=== PATIENT | female | born 1975 | race Caucasian/White ===

== ENCOUNTER 2020-05-11 18:45 | Emergency (ER) | payer MEDICARE, SELFPAY | END 2020-05-11 20:06 | disposition left against medical advice (07) | LOC: HO.ED 20:05 | PROVIDERS: Emergency Provider Internal Medicine; PCP Internal Medicine | DX: M54.5 Low back pain (principal) | CPT/HCPCS: 99281 ==

== ENCOUNTER 2020-07-07 15:22 | Outpatient (REF) | payer BC, MEDICARE, SELFPAY ==
--- NOTE | 2020-07-07 | MM_ITS ---
EXAMINATION: MM SCREENING DIGITAL BREAST TOMOSYNTHESIS, BILATERAL CLINICAL INFORMATION: Screening. Asymptomatic. The lifetime risk of breast cancer based on the Tyrer-Cuzick Model is 12%. COMPARISON: Mammography: 07/10/2019, 06/27/2019, 06/14/2018, 06/01/2017 TECHNIQUE: Digital breast tomosynthesis is performed in both the craniocaudal and mediolateral oblique views along with computer-aided detection (CAD). Synthesized 2D images are generated from the tomosynthesis. Additional exaggerated right CC view is provided. FINDINGS: There are scattered areas of fibroglandular density (ACR BI-RADS breast composition Category b). There are no significant masses, abnormal calcifications, or other abnormalities. Parenchymal pattern is similar to prior exams. No developing density. No significant changes. There is a dermal lesion again noted overlying the posterior upper left breast. MM/MM tomosynthesis screening BI IMPRESSION: No significant changes from prior exams. ASSESSMENT: BI-RADS 2: Benign RECOMMENDATION: Routine annual mammography screening. This patient's information was entered into a reminder system with a target due date for their next mammogram.
== END 2020-07-07 15:23 | disposition home or self-care (01) ==
LOC: HO.MAMMO 15:22
PROVIDERS: Visit Provider Physician Assistant
DX: Z12.31 Encounter for screening mammogram for malignant neoplasm of breast (principal)
CPT/HCPCS: 77063; 77067

== ENCOUNTER → 2020-07-08 13:36 | Outpatient (BNVA) | payer BC, MEDICARE, SELFPAY | PROVIDERS: PCP Internal Medicine; Referring Provider Internal Medicine; Visit Provider Urology | DX: Z76.89 Persons encountering health services in other specified circumstances (principal) ==

== ENCOUNTER 2020-07-09 10:56 | Outpatient (REF) | payer BC, MEDICARE, SELFPAY ==
[2020-07-15 22:52] LABS: Stone Source KIDNEY STONE
== END 2020-07-09 10:57 | disposition home or self-care (01) ==
LOC: HO.LNP 10:56
PROVIDERS: Visit Provider Urology
DX: N20.2 Calculus of kidney with calculus of ureter (principal)
CPT/HCPCS: 82365; 88300

== ENCOUNTER 2020-07-27 09:27 | Outpatient (REF) | payer BC, MEDICARE, SELFPAY ==
[2020-07-27 10:32] LABS: Anion Gap 10 (12-20); Blood Urea Nitrogen 8 mg/dL (9-16); Calcium 9.9 mg/dL (8.4-10.2); Carbon Dioxide 29 mmol/L (22-29); Chloride 105 mmol/L (96-108); Estimated Glomerular Filt Rate > 60; Glucose Random 90 mg/dL (60-115); Potassium 4.4 mmol/l (3.3-5.1); Sodium 140 mmol/L (135-145)
[2020-07-28 13:43] LABS: Calcium (PTHI) 10.1 mg/dL (8.6-10.2); PTHI 68 pg/mL (14-64)
== END 2020-07-27 09:28 | disposition home or self-care (01) ==
LOC: HO.LAB 09:27
PROVIDERS: PCP Internal Medicine; Visit Provider Urology
DX: N20.0 Calculus of kidney (principal)
CPT/HCPCS: 80048; 83970

== ENCOUNTER 2020-08-06 16:10 | Outpatient (REF) | payer BC, MEDICARE, SELFPAY ==
--- NOTE | 2020-08-06 16:14 | US_ITS ---
EXAMINATION: US RETROPERITONEAL LIMITED (RENAL ONLY) CLINICAL INFORMATION: Calculus of kidney. COMPARISON: Renal ultrasound 10/25/2018. TECHNIQUE: Real-time imaging of the kidneys. FINDINGS: RIGHT KIDNEY: 11.3 x 5.3 x 6.4 cm (SAG x AP x TRV). Medullary nephrocalcinosis. 1.9 cm anechoic right upper pole simple cyst. There is a 6 mm echogenic, shadowing lower pole calculus and a 4 mm echogenic, shadowing upper pole calculus. Renal cortical thickness is normal. No hydronephrosis. LEFT KIDNEY: 11.8 x 5.6 x 5.4 cm (SAG x AP x TRV). 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 1.8 cm simple cyst of the upper pole. 2.2 cm simple cyst of the lower pole. There is a prominent extrarenal pelvis but no calyceal dilation to suggest hydronephrosis. 5 mm echogenic mid renal calculus and a 3 mm echogenic, shadowing lower pole calculus. US/US renal BI IMPRESSION: Bilateral medullary nephrocalcinosis with additional focal echogenic shadowing nonobstructing renal calculi as described above. Bilateral renal cysts.
== END 2020-08-06 16:11 | disposition home or self-care (01) ==
LOC: HO.US 16:10
PROVIDERS: Visit Provider Urology
DX: N20.0 Calculus of kidney (principal)
CPT/HCPCS: 76775

== ENCOUNTER → 2020-08-19 14:53 | Outpatient (BNVA) | payer BC, MEDICARE, SELFPAY | PROVIDERS: PCP Internal Medicine; Visit Provider Urology | DX: N20.0 Calculus of kidney (principal); E83.52 Hypercalcemia; E21.3 Hyperparathyroidism, unspecified | CPT/HCPCS: 99212 ==

== ENCOUNTER 2020-09-23 08:40 | Outpatient (REF) | payer BC, MEDICARE, SELFPAY ==
[2020-09-23 09:20] LABS: MANUAL DIFF FLAG NO
[2020-09-23 09:26] LABS: Basophils Absolute Auto 0.1 X10*3/uL (0.0-0.2); Basophils Percent Auto 0.8 % (0-2); Eosinophils Absolute Auto 0.2 X10*3/uL (0.0-0.4); Eosinophils Percent Auto 2.4 % (0-4); Hematocrit 38.9 % (37-47); Hemoglobin 12.3 g/dl (12.0-16.0); Imm Gran Abs Auto 0.02 X10*3/uL (0.00-0.03); Imm Gran Pct Auto 0.3 % (0.0-0.4); Lymphocytes Absolute Auto 1.9 X10*3/uL (1.2-4.9); Lymphocytes Percent Auto 26.1 % (20-40); Mean Corpuscular HGB Conc 31.6 g/dl (31.0-35.0); Mean Corpuscular Hemoglobin 27.7 pg (27.0-33.0); Mean Corpuscular Volume 87.6 fL (80-98); Mean Platelet Volume 10.5 fL (9.4-12.3); Monocytes Absolute Auto 0.5 X10*3/uL (0.1-1.2); Monocytes Percent Auto 7.1 % (2-11); Neutrophils Absolute Auto 4.6 X10*3/uL (2.0-8.3); Neutrophils Percent Auto 63.3 % (45-73); Platelet Count 387 X10*3/uL (160-400); Red Blood Count 4.44 X10*6/uL (4.20-5.50); Red Cell Distribution Width 14.6 % (11.0-16.0); White Blood Count 7.2 X10*3/uL (4.8-10.8)
[2020-09-23 10:01] LABS: Alanine Aminotransferase 15 U/L (0-31); Albumin Level 4.5 g/dL (3.5-5.0); Alkaline Phosphatase 48 U/L (39-117); Anion Gap 11 (12-20); Aspartate Amino Transferase 16 U/L (5-31); Bilirubin Total 0.4 mg/dL (0.0-1.0); Blood Urea Nitrogen 8 mg/dL (9-16); Calcium 10.3 mg/dL (8.4-10.2); Carbon Dioxide 27 mmol/L (22-29); Chloride 105 mmol/L (96-108); Cholesterol 253 mg/dL; Estimated Glomerular Filt Rate > 60; Glucose Fasting 86 mg/dL (60-99); HDL Cholesterol 51 mg/dL; LDL Cholesterol Calculated 174 mg/dl; Potassium 4.2 mmol/L (3.3-5.1); Sodium 139 mmol/L (135-145); Total Protein 7.2 g/dL (6.5-8.0); Triglycerides 143 mg/dL
[2020-09-23 10:15] LABS: TSH reflex Free T4 1.62 uIU/mL (0.32-4.0)
[2020-09-23 11:00] LABS: Folate 12.6 ng/mL (> or = 4.0); Vitamin B12 399 pg/mL (200-900)
[2020-09-26 11:51] LABS: Lamotrigine Lamictal 12.8 mcg/mL (4.0-18.0)
[2020-09-27 23:47] LABS: Vitamin D 25-OH, D2 <4 ng/mL; Vitamin D 25-OH, D3 14 ng/mL; Vitamin D 25-OH, Total 14 ng/mL (30-100)
== END 2020-09-23 08:41 | disposition home or self-care (01) ==
LOC: HO.LAB 08:40
PROVIDERS: Absent Provider Urology; PCP Internal Medicine; Visit Provider Internal Medicine
DX: D64.9 Anemia, unspecified (principal); G47.00 Insomnia, unspecified; E78.5 Hyperlipidemia, unspecified; R56.9 Unspecified convulsions; R53.83 Other fatigue; E55.9 Vitamin D deficiency, unspecified
CPT/HCPCS: 36415; 80053; 80061; 80175; 82306; 82607; 82746; 84443; 85025

== ENCOUNTER 2020-11-26 13:10 | Outpatient (REF) | payer BC, MEDICARE, SELFPAY ==
[2020-11-26 14:38] LABS: Hematocrit 38.8 % (37-47); Hemoglobin 12.4 g/dl (12.0-16.0); Mean Corpuscular Hemoglobin 28.4 pg (27.0-33.0); Mean Corpuscular Volume 88.8 fL (80-98); Mean Platelet Volume 10.4 fL (9.4-12.3); Platelet Count 392 X10*3/uL (160-400); Red Blood Count 4.37 X10*6/uL (4.20-5.50); Red Cell Distribution Width 14.5 % (11.0-16.0); White Blood Count 8.2 X10*3/uL (4.8-10.8)
[2020-11-26 15:20] LABS: HCG Quantitative < 2 mIU/mL; Thyroid Stimulating Hormone 1.26 uIU/mL (0.32-4.0)
[2020-11-27 06:26] LABS: CT PCR NOT DETECTED (Not Detect.); NG PCR NOT DETECTED (Not Detect.)
[2020-11-30 19:22] LABS: HPV mRNA E6/E7 rflx Not Detected (Not Detected)
== END 2020-11-26 13:11 | disposition home or self-care (01) ==
LOC: HO.LAB 13:10
PROVIDERS: PCP Internal Medicine; Visit Provider Obstetrics & Gynecology
DX: Z01.419 Encounter for gynecological examination (general) (routine) without abnormal findings (principal); N88.9 Noninflammatory disorder of cervix uteri, unspecified; N92.1 Excessive and frequent menstruation with irregular cycle; Z87.891 Personal history of nicotine dependence
CPT/HCPCS: 36415; 57500; 84443; 84702; 85027; 87491; 87591; 87624; 88142; 88305

== ENCOUNTER 2020-12-09 12:43 | Outpatient (REF) | payer BC, MEDICARE, SELFPAY ==
--- NOTE | ~2020-12-09 | US_ITS ---
EXAMINATION: PELVIC ULTRASOUND CLINICAL INFORMATION: Excessive and frequent menstruation COMPARISON: None TECHNIQUE: Transabdominal and transvaginal pelvic ultrasound was performed. Transvaginal exam was performed for better visualization of the uterus and ovaries. FINDINGS: The uterus is retroverted and measures 9.3 x 5.5 x 6.5 cm in dimension. No focal uterine lesion is seen. The endometrium is thickened measuring 2.2 cm. There is a small thin-walled endometrial cyst measuring 4 x 6 x 4 mm. There are nabothian cysts in the cervix. The right ovary is not seen. The left ovary is enlarged and measures 4.3 x 3.4 x 3.3 cm, volume 25 mL. There is a 3.6 x 2.7 x 3.3 cm minimally complex cyst with a cyst within cyst or a daughter cyst. There is a small amount of fluid in the pelvis. US/US pelvic complete IMPRESSION: Abnormally thickened endometrium measuring 2.2 cm. Right ovary not seen. Enlarged left ovary and 3.6 x 2.7 x 3.3 cm slightly complex left ovarian cyst.
--- NOTE | ~2020-12-09 | US_ITS ---
EXAMINATION: PELVIC ULTRASOUND CLINICAL INFORMATION: Excessive and frequent menstruation COMPARISON: None TECHNIQUE: Transabdominal and transvaginal pelvic ultrasound was performed. Transvaginal exam was performed for better visualization of the uterus and ovaries. FINDINGS: The uterus is retroverted and measures 9.3 x 5.5 x 6.5 cm in dimension. No focal uterine lesion is seen. The endometrium is thickened measuring 2.2 cm. There is a small thin-walled endometrial cyst measuring 4 x 6 x 4 mm. There are nabothian cysts in the cervix. The right ovary is not seen. The left ovary is enlarged and measures 4.3 x 3.4 x 3.3 cm, volume 25 mL. There is a 3.6 x 2.7 x 3.3 cm minimally complex cyst with a cyst within cyst or a daughter cyst. There is a small amount of fluid in the pelvis. US/US transvaginal IMPRESSION: Abnormally thickened endometrium measuring 2.2 cm. Right ovary not seen. Enlarged left ovary and 3.6 x 2.7 x 3.3 cm slightly complex left ovarian cyst.
== END 2020-12-09 12:44 | disposition home or self-care (01) ==
LOC: HO.US 12:43
PROVIDERS: PCP Internal Medicine; Visit Provider Obstetrics & Gynecology
DX: N92.1 Excessive and frequent menstruation with irregular cycle (principal)
CPT/HCPCS: 76830; 76856

== ENCOUNTER → 2020-12-14 13:39 | Outpatient (BNVA) | payer BC, MEDICARE, SELFPAY | PROVIDERS: PCP Internal Medicine; Referring Provider Urology; Visit Provider Internal Medicine Endocrinology, Diabetes & Metabolism ==

== ENCOUNTER 2020-12-15 10:03 | Outpatient (REF) | payer BC, MEDICARE, SELFPAY ==
[2020-12-15 12:28] LABS: Alanine Aminotransferase 14 U/L (0-31); Albumin Level 4.8 g/dL (3.5-5.0); Alkaline Phosphatase 57 U/L (39-117); Anion Gap 13 (12-20); Aspartate Amino Transferase 15 U/L (5-31); Bilirubin Total 0.5 mg/dL (0.0-1.0); Blood Urea Nitrogen 9 mg/dL (9-16); Calcium 10.5 mg/dL (8.4-10.2); Carbon Dioxide 27 mmol/L (22-29); Chloride 105 mmol/L (96-108); Estimated Glomerular Filt Rate > 60; Glucose Fasting 84 mg/dL (60-99); Magnesium 2.1 mg/dL (1.6-2.6); Phosphorus 2.7 mg/dL (2.7-4.5); Potassium 4.1 mmol/L (3.3-5.1); Sodium 141 mmol/L (135-145); Total Protein 7.8 g/dL (6.5-8.0)
[2020-12-15 12:34] LABS: Vitamin D 25-OH Total 14.7 ng/mL (>30)
[2020-12-16 12:44] LABS: Calcium (PTHI) 10.3 mg/dL (8.6-10.2); PTHI 100 pg/mL (14-64)
[2020-12-16 17:36] LABS: CA-125 27 U/mL (<35)
[2020-12-17 15:21] LABS: Calcium, Ionized 5.4 mg/dL (4.8-5.6)
[2020-12-18 15:11] LABS: HPV mRNA E6/E7 rflx Not Detected (Not Detected)
[2020-12-18 17:11] LABS: Alkaline Phosphatase Bone 7.9 mcg/L (5.0-18.8)
[2020-12-19 17:21] LABS: VITAMIN D (1,25 OH) D3 76 pg/mL; Vit D (1,25-Dihydroxy) Total 76 pg/mL (18-72); Vitamin D (1,25 OH) D2 <8 pg/mL
== END 2020-12-15 10:04 | disposition home or self-care (01) ==
LOC: HO.LAB 10:03
PROVIDERS: Absent Provider Internal Medicine Endocrinology, Diabetes & Metabolism; PCP Internal Medicine; Visit Provider Obstetrics & Gynecology
DX: N92.1 Excessive and frequent menstruation with irregular cycle (principal); N88.9 Noninflammatory disorder of cervix uteri, unspecified; N83.299 Other ovarian cyst, unspecified side; R87.615 Unsatisfactory cytologic smear of cervix; E21.3 Hyperparathyroidism, unspecified; Z87.891 Personal history of nicotine dependence
CPT/HCPCS: 36415; 58100; 80053; 81025; 82306; 82330; 82652; 83735; 83970; 84075; 84100; 86304; 87624; 88142; 88305

== ENCOUNTER 2020-12-17 10:33 | Outpatient (REF) | payer BC, MEDICARE, SELFPAY ==
[2020-12-17 11:47] LABS: Creatinine, mg/dL 63.96
[2020-12-17 17:53] LABS: Creatinine, 24Hr Urine 0.7 G/Day (1.0-2.0); Total Volume 24 Hour Urine 1075 mL
[2020-12-18 19:17] LABS: Calcium, 24 Hr Urine 194 mg/24 h; Calcium/Creatinine Ratio 286 mg/g creat (30-275); Creatinine 24Hr Urine 0.68 g/24 h (0.50-2.15)
== END 2020-12-17 10:34 | disposition home or self-care (01) ==
LOC: HO.LNP 10:33
PROVIDERS: Visit Provider Internal Medicine Endocrinology, Diabetes & Metabolism
DX: E21.3 Hyperparathyroidism, unspecified (principal)
CPT/HCPCS: 82340; 82570

== ENCOUNTER 2020-12-24 13:13 | Outpatient (REF) | payer BC, MEDICARE, SELFPAY ==
--- NOTE | ~2020-12-24 | US_ITS ---
EXAMINATION: US THYROID CLINICAL INFORMATION: Hyperparathyroidism, unspecified. COMPARISON: Ultrasound soft tissue head/neck thyroid dated 08/18/2016 and 09/24/2015. TECHNIQUE: Linear transducer grayscale and color Doppler examination with attention to the region of the thyroid. FINDINGS: SIZE: Measurements of the thyroid lobes and nodules are given in sagittal, anteroposterior and transverse dimensions respectively. Right Thyroid Lobe: 5.0 x 1.2 x 1.3 cm, volume 4.1 mL. Previously 5.0 x 1.5 x 1.2 cm, volume 4.5 mL. Parenchyma: The gland echotexture is homogeneous. Thyroid vascularity is normal. Left Thyroid Lobe: 5.0 x 1.1 x 1.4 cm, volume 4.1 mL. Previously 5.1 x 0.9 x 1.2 cm, volume 3.0 mL. Parenchyma: The gland echotexture is homogeneous. Thyroid vascularity is normal. Isthmus: 0.18 cm in maximum AP dimension. Previously 0.16 cm. Estimated total number of nodules greater than or equal to 1 cm: 0. Irrigator Head nodules are described as follows: No focal thyroid nodule is seen. No parathyroid adenoma is identified. NODES: No lymphadenopathy is seen in the tissue surrounding the thyroid gland. US/US thyroid IMPRESSION: Normal thyroid ultrasound. No parathyroid adenoma visualized.
== END 2020-12-24 13:14 | disposition home or self-care (01) ==
LOC: HO.US 13:13
PROVIDERS: Visit Provider Internal Medicine Endocrinology, Diabetes & Metabolism
DX: E21.3 Hyperparathyroidism, unspecified (principal)
CPT/HCPCS: 76536

== ENCOUNTER → 2020-12-29 11:20 | Outpatient (BNVA) | payer MEDICARE, BC, SELFPAY | PROVIDERS: PCP Internal Medicine; Visit Provider Obstetrics & Gynecology | DX: N92.1 Excessive and frequent menstruation with irregular cycle (principal) | CPT/HCPCS: Q3014 ==

== ENCOUNTER 2021-01-13 12:44 | Outpatient (REF) | payer BC, MEDICARE, SELFPAY ==
--- NOTE | ~2021-01-13 | MM_ITS ---
EXAMINATION: BONE DENSITOMETRY CLINICAL INDICATION: Hyperparathyroidism. Age 45. COMPARISON: None (current study represents initial baseline exam). TECHNIQUE: Using a P2i DXA System (software version: 13.1) manufactured by [employer], dual-energy x-ray absorptiometry was performed of the lumbar spine, left hip, and left forearm radius 33%. The images are of good technical quality. Based on ISCD (International Society for Clinical Densitometry) standards of reporting, Z-scores instead of T-scores are reported in this premenopausal woman. Summary results are attached. FINDINGS: AP SPINE L1-L4: BMD 1.063 g/cm2, T-score -1.0, Z-score -1.0, Z-score within expected range for age. LEFT FEMUR, NECK: BMD 0.800 g/cm2, T-score -1.7, Z-score -1.2, Z-score within expected range for age. LEFT FEMUR, TOTAL: BMD 0.861 g/cm2, T-score -1.2, Z-score -0.9, Z-score within expected range for age. LEFT FOREARM RADIUS 33%: BMD 0.726 g/cm2, T-score -1.7, Z-score -1.7, Z-score within expected range for age. IDENTIFIED RISK FACTORS: Hyperparathyroid, anticonvulsant. HISTORY OF FRACTURE: None listed. MEDICATIONS: None listed. MM/XR DEXA appendicular skeleton IMPRESSION: 1. DIAGNOSIS: Based on the lowest Z-score value of -1.7 in the forearm radius 33%, the patient's bone density is within the expected range for age. 2. 10-YEAR FRACTURE RISK PREDICTION, FRAX: Major osteoporotic fracture (clinical spine, forearm, hip or shoulder) 3.2%. Hip fracture 0.4%. 3. Treatment Recommendations: NOF guidelines recommend consideration for treatment in postmenopausal women and men age 50 and older presenting with the following: -A hip or vertebral (clinical or morphometric) fracture. -T-score less than or equal to -2.5 at the femoral neck or spine after appropriate evaluation to exclude secondary causes. -Low bone mass at the hip or spine and a 10-year fracture probability by FRAX of greater than or equal to 3% for hip fracture or greater than or equal to 20% for major osteoporotic fracture based on the [place] adapted WHO algorithm. 4. Other Recommendations: All treatment decisions require clinical judgment and consideration of individual patient factors, including patient preferences, comorbidities, previous drug use, risk factors not captured in the FRAX model (e.g. frailty, falls, vitamin D deficiency, increased bone turnover, interval significant decline in bone density) and possible under or overestimation of fracture risk by FRAX. FUTURE SCAN RECOMMENDATION: People with diagnosed cases of osteoporosis or at high risk for fracture should have regular bone mineral density tests. For patients eligible for Medicare, routine testing is allowed once every 2 years. The testing frequency can be increased to one year for patients who have rapidly progressing disease, those who are receiving or discontinuing medical therapy to restore bone mass, or have additional risk factors.
== END 2021-01-13 12:45 | disposition home or self-care (01) ==
LOC: HO.MAMMO 12:44
PROVIDERS: Visit Provider Internal Medicine Endocrinology, Diabetes & Metabolism
DX: Z13.820 Encounter for screening for osteoporosis (principal); E21.3 Hyperparathyroidism, unspecified; Z79.01 Long term (current) use of anticoagulants
CPT/HCPCS: 77081

== ENCOUNTER → 2021-02-18 12:35 | Outpatient (BNVA) | payer BC, MEDICARE, SELFPAY | PROVIDERS: PCP Internal Medicine; Visit Provider Internal Medicine Endocrinology, Diabetes & Metabolism | DX: E21.3 Hyperparathyroidism, unspecified (principal) | CPT/HCPCS: 99212 ==

== ENCOUNTER 2021-03-08 15:21 | Outpatient (REF) | payer BC, MEDICARE, SELFPAY ==
--- NOTE | ~2021-03-08 | US_ITS ---
EXAMINATION: US PELVIS COMPLETE US BLADDER CLINICAL INFORMATION: Complex left ovarian cyst, poor urinary stream. COMPARISON: None TECHNIQUE: Transabdominal and transvaginal imaging of the pelvis was performed. FINDINGS: PELVIS: The uterus is retroverted and retroflexed. It measures 9.2 cm in length, 6.4 cm in AP and 6.8 cm in transverse dimension. Endometrial thickness is 1.8 cm. No focal lesion seen. The right ovary measures 3.9 x 2.2 x 2.8 cm and volume 12.6 mL. Previously it measured 1.7 x 1.4 x 1 cm. The left ovary measures 1.7 x 2.2 x 1.6 cm and volume 3.1 mL. Previously it measured 4.3 x 3.4 x 3.3 cm and volume 25.3 mL. BLADDER: The bladder is distended with a prevoid volume of 410 mL and a postvoid volume of 6.0 mL. There are normal bilateral ureteral jets. No bladder wall thickening seen. US/US transvaginal IMPRESSION: Unremarkable AP pelvis exam. Unremarkable bladder exam with a tiny postvoid residual volume.
--- NOTE | ~2021-03-08 | US_ITS ---
EXAMINATION: US PELVIS COMPLETE US BLADDER CLINICAL INFORMATION: Complex left ovarian cyst, poor urinary stream. COMPARISON: None TECHNIQUE: Transabdominal and transvaginal imaging of the pelvis was performed. FINDINGS: PELVIS: The uterus is retroverted and retroflexed. It measures 9.2 cm in length, 6.4 cm in AP and 6.8 cm in transverse dimension. Endometrial thickness is 1.8 cm. No focal lesion seen. The right ovary measures 3.9 x 2.2 x 2.8 cm and volume 12.6 mL. Previously it measured 1.7 x 1.4 x 1 cm. The left ovary measures 1.7 x 2.2 x 1.6 cm and volume 3.1 mL. Previously it measured 4.3 x 3.4 x 3.3 cm and volume 25.3 mL. BLADDER: The bladder is distended with a prevoid volume of 410 mL and a postvoid volume of 6.0 mL. There are normal bilateral ureteral jets. No bladder wall thickening seen. US/US pelvic complete IMPRESSION: Unremarkable AP pelvis exam. Unremarkable bladder exam with a tiny postvoid residual volume.
== END 2021-03-08 15:22 | disposition home or self-care (01) ==
LOC: HO.US 15:21
PROVIDERS: Visit Provider Obstetrics & Gynecology
DX: N83.299 Other ovarian cyst, unspecified side (principal); E21.3 Hyperparathyroidism, unspecified
CPT/HCPCS: 76830; 76856

== ENCOUNTER → 2021-03-31 11:00 | Outpatient (BNVA) | payer MEDICARE, BC, SELFPAY | PROVIDERS: PCP Internal Medicine; Visit Provider Obstetrics & Gynecology | CPT/HCPCS: Q3014 ==

== ENCOUNTER → 2021-05-19 11:20 | Outpatient (BNVA) | payer BC, MEDICARE, SELFPAY | PROVIDERS: Visit Provider Urology | DX: N20.0 Calculus of kidney (principal) | CPT/HCPCS: 99212 ==

== ENCOUNTER 2021-05-21 10:35 | Outpatient (REF) | payer BC, MEDICARE, SELFPAY ==
--- NOTE | ~2021-05-21 | XR_ITS ---
EXAMINATION: XR CLINICAL INFORMATION: Shoulder pain. COMPARISON: None. TECHNIQUE: Chest 2 views. Right scapula 2 views. FINDINGS: Chest: Both lungs are fairly well-expanded and clear. The heart size and pulmonary vascularity is normal. There is mild scoliosis of mid dorsal spine. No lytic process. Right scapula: There is no visible fracture or bony abnormality involving the right scapula. Mild degenerative spurring is seen involving the right AC joint. The glenohumeral joint space is normal. The soft tissues are normal. XR/XR scapula RT IMPRESSION: No acute cardiopulmonary process. Mild dextroscoliosis mid to lower dorsal spine. No acute fracture or bony abnormality involving the scapula. Mild degenerative arthritic spurring right AC joint.
--- NOTE | ~2021-05-21 | XR_ITS ---
EXAMINATION: XR CLINICAL INFORMATION: Shoulder pain. COMPARISON: None. TECHNIQUE: Chest 2 views. Right scapula 2 views. FINDINGS: Chest: Both lungs are fairly well-expanded and clear. The heart size and pulmonary vascularity is normal. There is mild scoliosis of mid dorsal spine. No lytic process. Right scapula: There is no visible fracture or bony abnormality involving the right scapula. Mild degenerative spurring is seen involving the right AC joint. The glenohumeral joint space is normal. The soft tissues are normal. XR/XR chest 2V IMPRESSION: No acute cardiopulmonary process. Mild dextroscoliosis mid to lower dorsal spine. No acute fracture or bony abnormality involving the scapula. Mild degenerative arthritic spurring right AC joint.
== END 2021-05-21 10:36 | disposition home or self-care (01) ==
LOC: HO.XRAY 10:35
PROVIDERS: PCP Internal Medicine; Visit Provider Internal Medicine
DX: M89.8X1 Other specified disorders of bone, shoulder (principal); R06.02 Shortness of breath
CPT/HCPCS: 71046; 73010

== ENCOUNTER 2021-07-14 12:48 | Outpatient (REF) | payer BC, MEDICARE, SELFPAY ==
[2021-07-14 16:24] LABS: CT PCR NOT DETECTED (Not Detect.); NG PCR NOT DETECTED (Not Detect.)
[2021-07-15 11:51] LABS: BV Int Neg Control Negative (Negative); BV Int Pos Control Positive (Positive)
== END 2021-07-14 12:49 | disposition home or self-care (01) ==
LOC: HO.LAB 12:48
PROVIDERS: PCP Internal Medicine; Visit Provider Obstetrics & Gynecology
DX: N76.0 Acute vaginitis (principal); R10.2 Pelvic and perineal pain; R31.29 Other microscopic hematuria; B96.89 Other specified bacterial agents as the cause of diseases classified elsewhere; E78.5 Hyperlipidemia, unspecified; Z11.3 Encounter for screening for infections with a predominantly sexual mode of transmission; Z11.8 Encounter for screening for other infectious and parasitic diseases; Z87.891 Personal history of nicotine dependence
CPT/HCPCS: 87086; 87480; 87491; 87510; 87591; 87660

== ENCOUNTER 2021-07-23 09:02 | Outpatient (REF) | payer BC, MEDICARE, SELFPAY ==
[2021-07-23 10:03] LABS: Hematocrit 33.1 % (37.0-47.0); Hemoglobin 10.1 g/dl (12.0-16.0); Mean Corpuscular HGB Conc 30.5 g/dl (31.0-35.0); Mean Corpuscular Hemoglobin 24.5 pg (27.0-33.0); Mean Corpuscular Volume 80.1 fL (80.0-98.0); Mean Platelet Volume 10.2 fL (9.4-12.3); Platelet Count 409 X10*3/uL (160-400); Red Blood Count 4.13 X10*6/uL (4.20-5.50); Red Cell Distribution Width 17.2 % (11.0-16.0)
[2021-07-23 10:28] LABS: Alanine Aminotransferase 13 U/L (0-31); Albumin Level 4.2 g/dL (3.5-5.0); Alkaline Phosphatase 54 U/L (39-117); Anion Gap 11 (12-20); Aspartate Amino Transferase 17 U/L (5-31); Bilirubin Total 0.3 mg/dL (0.0-1.0); Blood Urea Nitrogen 8 mg/dL (9-16); Calcium 10.2 mg/dL (8.4-10.2); Carbon Dioxide 25 mmol/L (22-29); Chloride 107 mmol/L (96-108); Estimated Glomerular Filt Rate > 60; Glucose Random 66 mg/dL (60-115); Potassium 4.1 mmol/L (3.3-5.1); Sodium 139 mmol/L (135-145); Total Protein 7.1 g/dL (6.5-8.0)
[2021-07-23 10:45] LABS: HBsAGNum1 0.21 S/CO (0.00-0.99); HIV AB/AG Nonreactive (Nonreactive); HIV Num 1 0.07 S/CO (0.00-0.99); Hepatitis B Surface Antigen Negative (Negative); Syphilis Screen Nonreactive (Nonreactive); ~HepC Num1 0.09 S/CO (0.00-0.79); ~Hepatitis C Antibody Nonreactive (Nonreactive)
== END 2021-07-23 09:03 | disposition home or self-care (01) ==
LOC: HO.LAB 09:02
PROVIDERS: Absent Provider Nurse Practitioner Family; PCP Internal Medicine; Visit Provider Obstetrics & Gynecology
DX: R06.02 Shortness of breath (principal); N76.0 Acute vaginitis; B96.89 Other specified bacterial agents as the cause of diseases classified elsewhere
CPT/HCPCS: 36415; 80053; 85027; 86780; 86803; 87340; 87389

== ENCOUNTER 2021-08-04 15:24 | Outpatient (REF) | payer BC, MEDICARE, SELFPAY ==
--- NOTE | ~2021-08-04 | US_ITS ---
EXAMINATION: US PELVIS CLINICAL INFORMATION: Pelvic and perineal pain COMPARISON: Previous pelvic ultrasound March 2021 TECHNIQUE: Ultrasound of the pelvis is performed using both transabdominal and transvaginal transducers along with Doppler. Transvaginal imaging is performed due to inadequate visualization transabdominally. FINDINGS: The uterus is retroverted and retroflexed and measures 9.3 x 5.2 x 5.7 cm. No focal uterine lesion is seen. Endometrial thickness is normal measuring 1.2 cm. Right ovary measures 2 x 1.7 x 1.8 cm. Previously identified complex right ovarian March 2021 exam is no longer seen. The left ovary measures 3.3 x 2.7 x 2.4 cm. There is new 2.1 x 2 x 2.1 cm slightly complex cyst with thickened wall, thickened septation and some internal echoes. There is a small amount of fluid in the pelvis. US/US pelvic and transvaginal IMPRESSION: Resolved complex right ovarian cyst. New 2 cm complex left ovarian cyst. Small amount of fluid in the pelvis.
== END 2021-08-04 15:25 | disposition home or self-care (01) ==
LOC: HO.US 15:24
PROVIDERS: PCP Internal Medicine; Visit Provider Obstetrics & Gynecology
DX: R10.2 Pelvic and perineal pain (principal)
CPT/HCPCS: 76830; 76856

== ENCOUNTER → 2021-08-05 13:51 | Outpatient (REF) | payer BC, MEDICARE, SELFPAY ==
--- NOTE | 2021-08-05 13:55 | ECG_ITS ---
Test Reason : sob Blood Pressure : / mmHG Vent. Rate : 067 BPM Atrial Rate : 067 BPM P-R Int : 140 ms QRS Dur : 080 ms QT Int : 378 ms P-R-T Axes : 032 042 055 degrees QTc Int : 399 ms Normal sinus rhythm Normal ECG When compared with ECG of 20-JUN-2016 10:54, No significant change was found Referred By: Junie Saldaña Electronically Signed By:Garrett Magana
== END ==
LOC: HO.CARD 13:51
PROVIDERS: PCP Internal Medicine; Visit Provider Nurse Practitioner Family
DX: R06.02 Shortness of breath (principal); R10.2 Pelvic and perineal pain; R31.29 Other microscopic hematuria
CPT/HCPCS: 81003; 93005

== ENCOUNTER 2021-08-12 09:46 | Outpatient (REF) | payer BC, MEDICARE, SELFPAY ==
[2021-08-12 10:42] LABS: COVID-19 Test Negative (Negative)
== END 2021-08-12 09:47 | disposition home or self-care (01) ==
LOC: HO.LAB 09:46
PROVIDERS: Visit Provider Internal Medicine
DX: Z20.822 Contact with and (suspected) exposure to COVID-19 (principal)
CPT/HCPCS: 87635; C9803

== ENCOUNTER → 2021-08-18 12:14 | Outpatient (BNVA) | payer BC, MEDICARE, SELFPAY | PROVIDERS: PCP Internal Medicine; Visit Provider Obstetrics & Gynecology ==

== ENCOUNTER → 2021-09-02 12:53 | Outpatient (REF) | payer MEDICARE, SELFPAY ==
--- NOTE | 2021-09-02 12:57 | CA_ITS ---
Transthoracic Echocardiogram Patient (Last, First, Middle): Delmy Escalera A Gender: Female Date of : 1975 Age: 46 Procedure Date: 09/02/2021 Procedure Type: Transthoracic Echocardiogram Location: OP Height: 157.48 cm Weight: 63.5 kg BSA: 1.64 m2 Heart Rate: bpm BP: 122 / 76 mmHg Cotton Stripper: ANGUS Referring MD: Junie DANIEL Wood Barrel Reconditioner: Michael Rodriguez MD Symptoms: R06.02 - Shortness of breath Study Quality: Good ECG Rhythm: Sinus Conclusions: - Essentially normal study Findings Left Ventricle Normal left ventricular size, thickness, and systolic function. The visually estimated ejection fraction is between 65-70%. Spectral Doppler is indicative of a normal filling pattern. Right Ventricle Normal right ventricular cavity size and systolic function. Atria Both atria are normal in size. There is a mobile atrial septum noted. There is no evidence of interatrial shunt. Aortic Valve The aortic valve structure and function is likely normal. There is no aortic valve stenosis. There is no aortic valve regurgitation. Mitral Valve Normal mitral valve structure and function. There is trace mitral valve regurgitation. There is no mitral valve stenosis. Pulmonic Valve The pulmonic valve was not well visualized. Tricuspid Valve Likely normal tricuspid valve structure and function. There is mild tricuspid valve regurgitation. The right ventricular systolic pressure is normal. The right ventricular systolic pressure is 23 mmHg. Normal right atrial pressure. There is no evidence of pulmonary hypertension. Great Vessels All visible segments of the aorta are normal in size. The pulmonary artery was not well visualized. Venous The inferior vena cava is normal in size and collapses greater than 50% with inspiration. Pericardium/Pleural There is no evidence of pericardial effusion. Measurements 2D Linear Measurements IVSd: 0.82 0.6-0.9/0.6-1.0 cm LVIDd: 4.33 3.9-5.3/4.2-5.9 cm LVIDd Index: 2.64 2.4-3.2/2.2-3.1 cm/m2 LVIDs: 2.93 2.0-3.6 cm LVPWd: 0.84 0.7-1.1 cm Ao Root: 2.80 2.1-3.5 cm LA Diam: 3.50 2.7-3.8/3.0-4.0 cm LAIDs Index: 2.13 1.5-2.3 cm/m2 LV Mass: 138.64 67-162/88-224 g LV Mass Index: 84.54 43-95/49-115 g/m2 LVOT Diam: 2.00 3.0+(-)1.3 cm 2D Systolic Function EF 4C: 74.80 >55% EF 2C: 70.60 >55% EF BiP: 72.10 >55% Mitral Valve MV Pk E: 0.77 MV PK A: 0.65 MV Decel Time: 277.00 E/A: 1.20 E'Lateral: 12.90 E'Medial: 10.00 E/E' Med: 7.70 E/E' Lat: 6.00 PHT: 81.00 MVA PHT: 2.72 Decel [place]: 2.79 Aortic Valve AoV Pk Beka: 1.40 AoV Mn Beka: 1.07 AoV VTI: 0.34 AoV Pk Grad: 8.00 Aov Mn Grad: 5.00 SEAN Cont.VTI: 2.15 LVOT LVOT Pk Beka: 0.88 LVOT Mn Beka: 0.68 LVOT VTI: 0.23 LVOT Pk Grad: 3.00 LVOT Mn Grad: 2.00 LVOT Diam: 2.00 LVOT Area: 3.14 Diastolic Function MV Pk E: 0.77 MV Pk A: 0.65 E/A: 1.20 E'Medial: 10.00 E/E' Med: 7.70 E' Laterial: 12.90 E/E' Lat: 6.00 Right Ventricle TAPSE (mm): 25.30 TVS' Beka: 15.10 Tricuspid Valve TR Pk Beka: 2.24 TR Pk Grad: 20.00 RA Press: 3.00 RVSP: 23.00 Great Vessels Aorta Ao Root-2D: 2.80 2.0-3.7 cm Ao Asc: 2.60 2.1-3.4 cm Ao Arch: 2.50 Updated in Other Vendor System with Status of Final Michael Rodriguez MD electronically signed on 09/02/2021 5:51:56 PM with status of Final
== END ==
LOC: HO.CARD 12:53
PROVIDERS: Visit Provider Nurse Practitioner Family
DX: R06.02 Shortness of breath (principal)
CPT/HCPCS: 93306

== ENCOUNTER 2021-09-09 13:21 | Outpatient (REF) | payer MEDICARE, SELFPAY ==
--- NOTE | ~2021-09-09 | MM_ITS ---
EXAMINATION: MM SCREENING DIGITAL BREAST TOMOSYNTHESIS, BILATERAL CLINICAL INFORMATION: Screening. Asymptomatic. The lifetime risk of breast cancer based on the Tyrer-Cuzick Model is 11.9%. COMPARISON: Mammography: 2019 and studies dating back to June 01, 2017 TECHNIQUE: Digital breast tomosynthesis is performed in both the craniocaudal and mediolateral oblique views along with computer-aided detection (CAD). Synthesized 2D images are generated from the tomosynthesis. FINDINGS: There are scattered areas of fibroglandular density (ACR BI-RADS breast composition Category b). There are no significant masses, abnormal calcifications, or other abnormalities. MM/MM tomosynthesis screening BI IMPRESSION: There are no significant changes from prior study. ASSESSMENT: BI-RADS 1: Negative RECOMMENDATION: Routine annual mammography screening. This patient's information was entered into a reminder system with a target due date for their next mammogram.
== END 2021-09-09 13:22 | disposition home or self-care (01) ==
LOC: HO.MAMMO 13:21
PROVIDERS: PCP Internal Medicine; Visit Provider Internal Medicine
DX: Z12.31 Encounter for screening mammogram for malignant neoplasm of breast (principal)
CPT/HCPCS: 77063; 77067

== ENCOUNTER 2021-10-13 14:21 | Outpatient (REF) | payer MEDICARE, SELFPAY ==
[2021-10-13 17:57] LABS: CT PCR NOT DETECTED (Not Detect.); NG PCR NOT DETECTED (Not Detect.)
== END 2021-10-13 14:22 | disposition home or self-care (01) ==
LOC: HO.LAB 14:21
PROVIDERS: PCP Internal Medicine; Visit Provider Obstetrics & Gynecology
DX: N91.2 Amenorrhea, unspecified (principal)
CPT/HCPCS: 81025; 87491; 87591; 99212

== ENCOUNTER → 2021-10-27 15:10 | Outpatient (BNVA) | payer MEDICARE, SELFPAY | PROVIDERS: PCP Internal Medicine; Visit Provider Obstetrics & Gynecology | DX: N91.2 Amenorrhea, unspecified (principal) | CPT/HCPCS: Q3014 ==

== ENCOUNTER 2021-10-29 09:59 | Outpatient (REF) | payer MEDICARE, BC, SELFPAY ==
[2021-10-29 10:58] LABS: Hematocrit 35.2 % (37.0-47.0); Immature Retic Fraction 14.1 % (3.0-15.9); Mean Corpuscular HGB Conc 31.3 g/dl (31.0-35.0); Mean Corpuscular Hemoglobin 26.7 pg (27.0-33.0); Mean Corpuscular Volume 85.4 fL (80.0-98.0); Mean Platelet Volume 10.4 fL (9.4-12.3); Platelet Count 357 X10*3/uL (160-400); Red Blood Count 4.12 X10*6/uL (4.20-5.50); Red Cell Distribution Width 18.1 % (11.0-16.0); Retic HGB Equivalent 27.3 pg (30.0-35.0); Reticulocyte Percent 1.6 % (0.5-1.8); Reticulocytes Absolute 0.066 X10*6/uL (0.026-0.095); White Blood Count 6.9 X10*3/uL (4.8-10.8)
[2021-10-29 12:05] LABS: Iron 32 mcg/dL (30-160); Percent Iron Saturation 8 % (15-50); Total Iron Binding Capacity 418 mcg/dL (228-428); Unsaturated Iron Binding 386 ug/dL
[2021-10-29 12:15] LABS: HCG Quantitative < 2 mIU/mL; TSH reflex Free T4 0.86 uIU/mL (0.32-4.0)
[2021-10-31 01:51] LABS: Prolactin 3.2 ng/mL
== END 2021-10-29 10:00 | disposition home or self-care (01) ==
LOC: HO.LAB 09:59
PROVIDERS: Absent Provider Nurse Practitioner Family; PCP Internal Medicine; Visit Provider Obstetrics & Gynecology
DX: D50.9 Iron deficiency anemia, unspecified (principal); N91.2 Amenorrhea, unspecified
CPT/HCPCS: 36415; 83540; 84146; 84443; 84702; 85027; 85045

== ENCOUNTER 2021-11-16 10:44 | Outpatient (REF) | payer MEDICARE, BC, SELFPAY ==
--- NOTE | ~2021-11-16 | US_ITS ---
EXAMINATION: US PELVIS CLINICAL INFORMATION: N83.299 - Other ovarian cyst. Age 46. LMP 10/24/2021. COMPARISON: Ultrasound pelvis 08/04/2021, 03/08/2021, 12/09/2020 TECHNIQUE: Ultrasound of the pelvis is performed using both transabdominal and transvaginal transducers along with Doppler. Transvaginal imaging is performed due to inadequate visualization transabdominally. FINDINGS: Uterus: The uterus is retroverted and measures 9.2 x 6.1 x 6.5 cm. The double wall endometrial thickness is mildly thickened at 1.9 cm. The uterus is smooth in contour and has normal myometrial echogenicity. No visible fibroid. Adnexa: Both ovaries are visualized. There is normal color flow to the adnexa. There is no ovarian torsion. There is no pelvic ascites or fluid collection. Right ovary measures 2.0 x 0.9 x 1.5 cm. No right adnexal mass. Left ovary measures 2.6 x 1.7 x 1.9 cm. There is an intraovarian postovulatory corpus luteum cyst measuring 1.5 cm with typical peripheral mural thickening. No nodule or septation. The prior ultrasound 08/04/2021 was also performed at same time in the menstrual cycle and demonstrated a probable postovulatory corpus luteum measuring 2.1 cm. US/US pelvic and transvaginal IMPRESSION: -Uterus: Mild double wall endometrial thickening, 1.9 cm. -Adnexa: Left intraovarian postovulatory corpus luteum cyst measuring 1.5 cm. No ascites.
--- NOTE | ~2021-11-16 | US_ITS ---
EXAMINATION: US RETROPERITONEAL LIMITED (RENAL ONLY) CLINICAL INFORMATION: Calculus of kidney., Nephrocalcinosis COMPARISON: Ultrasound renal 08/06/2020 and 10/25/2018. TECHNIQUE: Real-time imaging of the kidneys. FINDINGS: RIGHT KIDNEY: 10.2 x 5.8 x 4.6 cm (SAG x AP x TRV). The kidney is normal in size, contour, and echogenicity. Renal cortical thickness is normal. No renal calculi or hydronephrosis. 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 There is 1.4 x 1.5 x 1.3 cm cyst in interpolar area and multiple calculi with the largest in the lower pole measured 1.3 x 1.0 cm. LEFT KIDNEY: 11.6 x 5.7 x 4.8 cm (SAG x AP x TRV). The kidney is normal in size, contour, and echogenicity. Renal cortical thickness is normal. No renal hydronephrosis. 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 Bilateral simple cysts..
== END 2021-11-16 10:45 | disposition home or self-care (01) ==
LOC: HO.US 10:44
PROVIDERS: PCP Internal Medicine; Visit Provider Urology
DX: R10.2 Pelvic and perineal pain (principal); N20.0 Calculus of kidney; N83.12 Corpus luteum cyst of left ovary; N28.1 Cyst of kidney, acquired
CPT/HCPCS: 76775; 76830; 76856

== ENCOUNTER 2021-11-16 12:36 | Emergency (ER) | payer BC, MEDICARE, SELFPAY ==
--- NOTE | ~2021-11-16 | CT_ITS ---
EXAMINATION: CT HEAD WITHOUT CONTRAST CLINICAL INFORMATION: Seizure. COMPARISON: Brain MRI from 01/09/2008. TECHNIQUE: Contiguous axial imaging was performed from the skull base to vertex without intravenous administration of contrast. This CT examination was performed using dose optimization techniques as appropriate, variously including the following: *Automated exposure control. *Adjustment of mA and/or kV according to patient size (this includes techniques or standardized protocols for targeted exams where dose is matched to indication/reason for exam; i.e. extremities or head). *Use of iterative reconstruction technique. DLP: 637 mGy-cm FINDINGS: Changes of prior right temporoparietal craniotomy. There is thinning of the anterior left parietal bone. There is no evidence of acute intracranial hemorrhage or edematous territorial infarction. A few foci of hypoattenuation in the periventricular and deep white matter. Chronic and simple malacia of the right temporal lobe. No demonstrated new loss of foster-white matter differentiation. Mild ex vacuo dilatation of the right lateral ventricle. Otherwise, the ventricles are normal in size and configuration. No evidence for obstructive hydrocephalus. No abnormal mass effect or midline shift. No extra-axial fluid collections. Mild calcific atherosclerotic disease of the intracranial internal carotid and vertebral arteries. No hyperdense vessel sign. No acute soft tissue or osseous abnormalities. Moderate leftward nasal septal deviation with spurring. Mild mucosal thickening of the paranasal sinuses. The mastoid air cells and middle ear cavities are clear. Mild to moderate degenerative arthropathy of the temporomandibular joints. CT/CT head/brain wo con IMPRESSION: 1. No evidence of acute intracranial hemorrhage or edematous territorial infarction. 2. 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 Mild nonspecific white matter changes.
[2021-11-16 12:44] VITALS: BP 123/78; BP 128/74; PULSE 114; PULSE 120; RESP 14; TEMP 36.8; O2SAT 100; BMI 26.5
--- NOTE | 2021-11-16 12:52 | ECG_ITS ---
Test Reason : SEIZURE Blood Pressure : / mmHG Vent. Rate : 102 BPM Atrial Rate : 102 BPM P-R Int : 124 ms QRS Dur : 084 ms QT Int : 328 ms P-R-T Axes : 043 023 028 degrees QTc Int : 427 ms Sinus tachycardia Otherwise normal ECG When compared with ECG of 05-AUG-2021 14:03, Vent. rate has increased BY 35 BPM Referred By: Krissy Meadows Electronically Signed By:Garrett Magana
[2021-11-16] MEDS: LORazepam 1 MG TABLET 2 MG PO (12:57)
--- NOTE | 2021-11-16 13:14 | ED.SEIZURE ---
HPI - Seizure General Chief Complaint: Seizure Stated Complaint: SEIZURE Time Seen by Provider: 11/16/21 12:51 Source: patient Mode of arrival: EMS Limitations: no limitations History of Present Illness complaint: seizure Onset (ago): minute(s) (prior to arrival ) Description of Episode: loss of consciousness and tonic-clonic movement Duration of episode: 15 -: second(s) Witnessed: Yes - by Bystander (kids) Trauma: No Seizure History: Yes Place: Home Possible Precipitating Event: lack of sleep and other (missed lamictal dose last night 200mg but took AM dose and 12pm dose of lamictal 100/100) Associated symptoms: denies other symptoms Treatments prior to arrival: none Related Data Home Medications Medication Instructions Recorded Confirmed lamotrigine 200 mg tablet 200 mg PO BID 07/08/20 07/15/21 Previous Rx's Medication Instructions Recorded albuterol sulfate 90 mcg/actuation 2 puff INHALATION Q4-6H PRN #8.5 g 07/15/21 aerosol inhaler (ProAir HFA) ferrous sulfate 325 mg (65 mg 325 mg PO DAILY 90 Days #90 tab 07/24/21 iron) tablet,delayed release medroxyprogesterone 10 mg tablet 10 mg PO daily 5 Days #5 tab 10/13/21 (Provera) Allergies Allergy/AdvReac Type Severity Reaction Status Date / Time No Known Allergies Allergy Verified 10/13/21 14:28 [No Known Allergies*] Review of Systems Review of Systems: Constitutional : No Weight loss, No Fever, No Chills, No Fatigue, No Malaise ENT/Mouth : No sore throat, No Rhinorrhea Eyes: No Eye Pain, No Swelling, No Redness Cardiovascular : No Chest Pain, No SOB, No Dyspnea on Exertion, No Orthopnea, No Edema, No Palpitations Respiratory : No Cough, No Sputum, No Wheezing Gastrointestinal : No Nausea, No Vomiting, No Diarrhea, No Constipation, No abdominal Pain, No Hematochezia, No Melena Genitourinary : No Dysuria, No Urinary Frequency, No Hematuria, Musculoskeletal : No joint pain, No Myalgias, No Joint Swelling Skin : No Skin Lesions, No rash Neuro : No Weakness, No Numbness, No Dizziness, No Headache, pos seizure Psych : No Anxiety/Panic, No Depression Heme/Lymph: No Bruising, No Bleeding,No Lymphadenopathy Endocrine : No Polyuria, No Polydipsia All other systems reviewed and are negative [facility] Past Medical History Medical History Anemia Dyslipidemia Insomnia Pain of right scapula Seizures Shortness of breath Surgical History History of tonsillectomy History of tumor Family History Family History Father High cholesterol Mother Acute Crohn's disease Maternal Aunt Breast cancer Maternal Uncle Cancer Social History Social History Housing: House Alcohol intake: never Patient Tobacco Use Status: Former Tobacco user Tobacco use type: Cigarette e-Cigarette/Vaping Use: Never Used Second Hand Smoke Exposure: No Advance Directives: No Advance Directives Information Provided: Yes Patient : No service: No Current occupational status: unemployed Physical Exam Vital Signs: Vital Signs: Last Vital Signs Temp 99.1 F 11/16/21 13:51 Pulse 107 H 11/16/21 13:51 Resp 20 11/16/21 13:51 BP 129/79 11/16/21 13:51 Pulse Ox 99 11/16/21 13:51 BMI result Body Mass Index 26.5 Appearance: Alert. Oriented X3. No acute distress. Eyes: Pupils equal, round and reactive to light. ENT: Pharynx normal. no tongue abrasions Neck: Normal inspection. Neck supple. CVS: Normal heart rate and rhythm. Pulses normal. Respiratory: No respiratory distress. Breath sounds normal. Abdomen: Soft and nontender. no incontinence Skin: Skin warm and dry. Normal skin color. Normal skin turgor. Extremities: No lower extremity edema. No calf ttp Neuro: Oriented X 3. No motor deficit. No sensory deficit. Course Course Course Narrative: no further seizures, negative workup stable for DC MDM - Seizure MDM Narrative Medical decision making narrative: 46 yo female with hx of seizures on lamictal 200mg BID did miss her dose last night and did not sleep well - had witnessed seizure x 15 seconds prior to arrival. No trauma. At this time took AM doses - will obtain basic labs, EKG, CT head given prior remote hx of removed ganglioma - observe, dispo per results and findings. Lab Data Result diagrams: 11/16/21 13:46 11/16/21 13:46 Labs: Lab Results 11/16/21 11/16/21 11/16/21 Range/Units 13:46 13:46 13:54 WBC 11.6 H (4.8-10.8) X10*3/uL RBC 4.34 (4.20-5.50) X10*6/uL Hgb 11.5 L (12.0-16.0) g/dl Hct 36.3 L (37.0-47.0) % MCV 83.6 (80.0-98.0) fL MCH 26.5 L (27.0-33.0) pg MCHC 31.7 (31.0-35.0) g/dl RDW 16.8 H (11.0-16.0) % Plt Count 337 (160-400) X10*3/uL MPV 10.1 (9.4-12.3) fL Immature Gran % (Auto) 0.3 (0.0-0.4) % Neut % (Auto) 82.8 H (45-73) % Lymph % (Auto) 9.4 L (20-40) % [place] % (Auto) 6.6 (2-11) % Eos % (Auto) 0.2 (0-4) % Baso % (Auto) 0.7 (0-2) % Lymph # (Auto) 1.1 L (1.2-4.9) X10*3/uL [place] # (Auto) 0.8 (0.1-1.2) X10*3/uL Eos # (Auto) 0.0 (0.0-0.4) X10*3/uL Baso # (Auto) 0.1 (0.0-0.2) X10*3/uL Abs Immat Gran (auto) 0.03 (0.00-0.03) X10*3/uL Absolute Neuts (auto) 9.6 H (2.0-8.3) x10*3/uL Absolute Nucleated RBC 0.000 (0.0-0.012) X10*3/uL Nucleated RBC % (auto) 0.0 (0.0-0.2) /100WBC Sodium 136 (135-145) mmol/L Potassium 4.4 (3.3-5.1) mmol/L Chloride 107 (96-108) mmol/L Carbon Dioxide 21 L (22-29) mmol/L Anion Gap 12 (12-20) BUN 5 L (9-16) mg/dL Creatinine 0.70 (0.5-1.4) mg/dL Estim Creat Clear Calc 90.3 Estimated GFR > 60 Random Glucose 96 (60-115) mg/dL Calcium 10.2 (8.4-10.2) mg/dL Magnesium 2.1 (1.6-2.6) mg/dL Total Bilirubin 0.2 (0.0-1.0) mg/dL Direct Bilirubin < 0.2 (0.0-0.5) mg/dL AST 13 (5-31) U/L ALT 13 (0-31) U/L Alkaline Phosphatase 53 (39-117) U/L Total Protein 7.1 (6.5-8.0) g/dL Albumin 4.3 (3.5-5.0) g/dL Urine Color YELLOW Urine Appearance CLEAR Urine pH 6.0 (5.0-8.0) Ur Specific [place] 1.025 (1.005-1.025) Urine Protein 1+ H (NEG-TRACE) MG/DL Urine Glucose (UA) NEG (NEG) MG/DL Urine Ketones NEG (NEG) MG/DL Urine Blood 1+ H (NEG) Urine Nitrite NEG (NEG) Ur Leukocyte Esterase NEG (NEG) Urine RBC 1-4 (0) /HPF Urine WBC 0-2 (0-4) /HPF Ur Squamous Epith Cells 2+ /LPF Urine Bacteria NONE /LPF Urine Test (NEGATIVE) COVID-19 (ANDREW) (Negative) COVID-19 Clin Com Influenza Type A (RENEE) (Negative) Influenza Type B (RENEE) (Negative) Influenza A & B Note 11/16/21 11/16/21 11/16/21 Range/Units 13:54 15:41 15:41 WBC (4.8-10.8) X10*3/uL RBC (4.20-5.50) X10*6/uL Hgb (12.0-16.0) g/dl Hct (37.0-47.0) % MCV (80.0-98.0) fL MCH (27.0-33.0) pg MCHC (31.0-35.0) g/dl RDW (11.0-16.0) % Plt Count (160-400) X10*3/uL MPV (9.4-12.3) fL Immature Gran % (Auto) (0.0-0.4) % Neut % (Auto) (45-73) % Lymph % (Auto) (20-40) % [place] % (Auto) (2-11) % Eos % (Auto) (0-4) % Baso % (Auto) (0-2) % Lymph # (Auto) (1.2-4.9) X10*3/uL [place] # (Auto) (0.1-1.2) X10*3/uL Eos # (Auto) (0.0-0.4) X10*3/uL Baso # (Auto) (0.0-0.2) X10*3/uL Abs Immat Gran (auto) (0.00-0.03) X10*3/uL Absolute Neuts (auto) (2.0-8.3) x10*3/uL Absolute Nucleated RBC (0.0-0.012) X10*3/uL Nucleated RBC % (auto) (0.0-0.2) /100WBC Sodium (135-145) mmol/L Potassium (3.3-5.1) mmol/L Chloride (96-108) mmol/L Carbon Dioxide (22-29) mmol/L Anion Gap (12-20) BUN (9-16) mg/dL Creatinine (0.5-1.4) mg/dL Estim Creat Clear Calc Estimated GFR Random Glucose (60-115) mg/dL Calcium (8.4-10.2) mg/dL Magnesium (1.6-2.6) mg/dL Total Bilirubin (0.0-1.0) mg/dL Direct Bilirubin (0.0-0.5) mg/dL AST (5-31) U/L ALT (0-31) U/L Alkaline Phosphatase (39-117) U/L Total Protein (6.5-8.0) g/dL Albumin (3.5-5.0) g/dL Urine Color Urine Appearance Urine pH (5.0-8.0) Ur Specific [place] (1.005-1.025) Urine Protein (NEG-TRACE) MG/DL Urine Glucose (UA) (NEG) MG/DL Urine Ketones (NEG) MG/DL Urine Blood (NEG) Urine Nitrite (NEG) Ur Leukocyte Esterase (NEG) Urine RBC (0) /HPF Urine WBC (0-4) /HPF Ur Squamous Epith Cells /LPF Urine Bacteria /LPF Urine Test NEGATIVE (NEGATIVE) COVID-19 (ANDREW) Negative (Negative) COVID-19 Clin Com See Note Influenza Type A (RENEE) Negative (Negative) Influenza Type B (RENEE) Negative (Negative) Influenza A & B Note See Note ECG Data Attestation: I personally reviewed and interpreted this ECG as follows: ECG interpretation date: 11/16/21 ECG interpretation time: 13:23 Interpretation: Rate: 102 Rhythm: sinus tachycardia [place]: normal Normal P waves. Normal SEAN. Normal QRS complex. ST T wave : normal no TOÑO qTC: normal prior studies: no acute ischemia The study has been interpreted contemporaneously by me. . Discharge Plan Discharge Clinical Impression: Seizure Patient Disposition: Home, Self-Care Instructions: Epilepsy (ED) Additional Instructions: return to ED for any worsening symptoms or concerns negative for COVID/flu please follow up with your Neurologist CT head FINDINGS: Changes of prior right temporoparietal craniotomy. There is thinning of the anterior left parietal bone. There is no evidence of acute intracranial hemorrhage or edematous territorial infarction. A few foci of hypoattenuation in the periventricular and deep white matter. Chronic and simple malacia of the right temporal lobe. No demonstrated new loss of foster-white matter differentiation. Mild ex vacuo dilatation of the right lateral ventricle. Otherwise, the ventricles are normal in size and configuration. No evidence for obstructive hydrocephalus. No abnormal mass effect or midline shift. No extra-axial fluid collections. Mild calcific atherosclerotic disease of the intracranial internal carotid and vertebral arteries. No hyperdense vessel sign. No acute soft tissue or osseous abnormalities. Moderate leftward nasal septal deviation with spurring. Mild mucosal thickening of the paranasal sinuses. The mastoid air cells and middle ear cavities are clear. Mild to moderate degenerative arthropathy of the temporomandibular joints. ? CT/CT head/brain wo con IMPRESSION: 1. No evidence of acute intracranial hemorrhage or edematous territorial infarction. 2. 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 Mild nonspecific white matter changes. Prescriptions: No Action ferrous sulfate 325 mg (65 mg iron) tablet,delayed release (DR/EC) 325 mg PO DAILY 90 Days Qty: 90 1RF albuterol sulfate [ProAir HFA] 90 mcg/actuation HFA aerosol inhaler 2 puff inhalation Q4-6H PRN (Reason: shortness of breath or wheezing) Qty: 8.5 0RF lamotrigine 200 mg tablet 200 mg PO BID 0RF medroxyprogesterone [Provera] 10 mg tablet 10 mg PO daily 5 Days Qty: 5 0RF
[2021-11-16 13:51] VITALS: BP 129/79; PULSE 107; RESP 20; TEMP 37.3; O2SAT 99
[2021-11-16 13:54] LABS: MANUAL DIFF FLAG NO
[2021-11-16 14:00] LABS: Basophils Absolute Auto 0.1 X10*3/uL (0.0-0.2); Basophils Percent Auto 0.7 % (0-2); Eosinophils Percent Auto 0.2 % (0-4); Hematocrit 36.3 % (37.0-47.0); Hemoglobin 11.5 g/dl (12.0-16.0); Imm Gran Abs Auto 0.03 X10*3/uL (0.00-0.03); Imm Gran Pct Auto 0.3 % (0.0-0.4); Lymphocytes Absolute Auto 1.1 X10*3/uL (1.2-4.9); Lymphocytes Percent Auto 9.4 % (20-40); Mean Corpuscular HGB Conc 31.7 g/dl (31.0-35.0); Mean Corpuscular Hemoglobin 26.5 pg (27.0-33.0); Mean Corpuscular Volume 83.6 fL (80.0-98.0); Mean Platelet Volume 10.1 fL (9.4-12.3); Monocytes Absolute Auto 0.8 X10*3/uL (0.1-1.2); Monocytes Percent Auto 6.6 % (2-11); Neutrophils Absolute Auto 9.6 x10*3/uL (2.0-8.3); Neutrophils Percent Auto 82.8 % (45-73); Platelet Count 337 X10*3/uL (160-400); Red Blood Count 4.34 X10*6/uL (4.20-5.50); Red Cell Distribution Width 16.8 % (11.0-16.0); White Blood Count 11.6 X10*3/uL (4.8-10.8)
[2021-11-16 14:00] LABS: Appearance Urine CLEAR; Color Urine YELLOW; Glucose Urine UA NEG (NEG); Leukocyte Esterase Urine NEG (NEG); Nitrite Urine NEG (NEG); Specific Gravity - Urine 1.025 (1.005-1.025); UACC Culture Trigger NO; Urine Blood 1+ (NEG); Urine Ketones NEG (NEG); Urine Protein 1+ MG/DL (NEG-TRACE)
[2021-11-16 14:03] LABS: UPreg QC Valid YES; Urine Pregnancy NEGATIVE (NEGATIVE)
[2021-11-16 14:12] LABS: Alanine Aminotransferase 13 U/L (0-31); Albumin Level 4.3 g/dL (3.5-5.0); Alkaline Phosphatase 53 U/L (39-117); Anion Gap 12 (12-20); Aspartate Amino Transferase 13 U/L (5-31); Bilirubin Direct < 0.2 mg/dL (0.0-0.5); Bilirubin Total 0.2 mg/dL (0.0-1.0); Blood Urea Nitrogen 5 mg/dL (9-16); Calcium 10.2 mg/dL (8.4-10.2); Carbon Dioxide 21 mmol/L (22-29); Chloride 107 mmol/L (96-108); Creatinine Clr Calc Pharmacy 90.3; Estimated Glomerular Filt Rate > 60; Glucose Random 96 mg/dL (60-115); Magnesium 2.1 mg/dL (1.6-2.6); Potassium 4.4 mmol/L (3.3-5.1); Sodium 136 mmol/L (135-145); Total Protein 7.1 g/dL (6.5-8.0)
[2021-11-16 14:14] LABS: Squamous Epithelial Cell Urine 2+ /LPF; WBC Urine 0-2 /HPF (0-4)
[2021-11-16 16:04] LABS: COVID-19 Test Negative (Negative)
[2021-11-16 16:05] LABS: IDNOW Serial# 08D9AD1C; Influenza A Negative (Negative); Influenza B2 Negative (Negative)
== END 2021-11-16 16:33 | disposition home or self-care (01) ==
PROVIDERS: Emergency Provider Emergency Medicine; PCP Internal Medicine
DX: R56.9 Unspecified convulsions (principal); Z20.822 Contact with and (suspected) exposure to COVID-19
CPT/HCPCS: 36415; 70450; 76775; 76830; 76856; 80048; 80076; 81001; 81003; 81025; 83735; 85025; 87502; 87635; 93005; 99283; 99284

== ENCOUNTER → 2021-11-18 10:59 | Outpatient (BNVA) | payer MEDICARE, BC, SELFPAY | PROVIDERS: PCP Internal Medicine; Visit Provider Urology | DX: Q61.5 Medullary cystic kidney (principal); E21.3 Hyperparathyroidism, unspecified | CPT/HCPCS: Q3014 ==

== ENCOUNTER 2021-11-24 15:48 | Outpatient (REF) | payer MEDICARE, BC, SELFPAY ==
[2021-11-30 08:17] LABS: Lamotrigine Lamictal 15.4 mcg/mL (4.0-18.0)
== END 2021-11-24 15:49 | disposition home or self-care (01) ==
LOC: HO.LAB 15:48
PROVIDERS: PCP Internal Medicine; Visit Provider Psychiatry & Neurology Neurology
DX: G40.019 Localization-related (focal) (partial) idiopathic epilepsy and epileptic syndromes with seizures of localized onset, intractable, without status epilepticus (principal); D36.10 Benign neoplasm of peripheral nerves and autonomic nervous system, unspecified
CPT/HCPCS: 36415; 80175

== ENCOUNTER → 2021-11-29 14:40 | Outpatient (BNVA) | payer MEDICARE, BC, SELFPAY | PROVIDERS: Visit Provider Obstetrics & Gynecology | DX: Z01.419 Encounter for gynecological examination (general) (routine) without abnormal findings (principal) ==

== ENCOUNTER 2022-06-06 10:02 | Outpatient (REF) | payer OTHER, MEDICARE, SELFPAY ==
[2022-06-06 11:09] LABS: Albumin Level 4.6 g/dL (3.5-5.0); Calcium 10.2 mg/dL (8.4-10.2)
[2022-06-06 11:31] LABS: Vitamin D 25-OH Total 15.4 ng/mL (>30)
[2022-06-07 11:42] LABS: PTHI 96 pg/mL (16-77)
== END 2022-06-06 10:03 | disposition home or self-care (01) ==
LOC: HO.LAB 10:02
PROVIDERS: PCP Internal Medicine; Visit Provider Internal Medicine Endocrinology, Diabetes & Metabolism
DX: E21.3 Hyperparathyroidism, unspecified (principal)
CPT/HCPCS: 36415; 82040; 82306; 82310; 83970

== ENCOUNTER 2022-06-09 08:49 | Outpatient (REF) | payer OTHER, MEDICARE, SELFPAY ==
[2022-06-09 10:34] LABS: Hematocrit 33.3 % (37.0-47.0); Hemoglobin 10.1 g/dl (12.0-16.0); Mean Corpuscular HGB Conc 30.3 g/dl (31.0-35.0); Mean Corpuscular Hemoglobin 24.7 pg (27.0-33.0); Mean Corpuscular Volume 81.4 fL (80.0-98.0); Mean Platelet Volume 10.3 fL (9.4-12.3); Platelet Count 355 X10*3/uL (160-400); Red Blood Count 4.09 X10*6/uL (4.20-5.50); Red Cell Distribution Width 18.2 % (11.0-16.0); White Blood Count 6.9 X10*3/uL (4.8-10.8)
[2022-06-09 11:26] LABS: HCG Quantitative < 2 mIU/mL; TSH reflex Free T4 1.37 uIU/mL (0.32-4.0)
[2022-06-09 12:55] LABS: CT PCR NOT DETECTED (Not Detect.); NG PCR NOT DETECTED (Not Detect.)
[2022-06-10 18:51] LABS: Follicle Stimulating Hormone 4.9 mIU/mL
== END 2022-06-09 08:50 | disposition home or self-care (01) ==
LOC: HO.LAB 08:49
PROVIDERS: PCP Internal Medicine; Visit Provider Obstetrics & Gynecology
DX: N93.9 Abnormal uterine and vaginal bleeding, unspecified (principal); Z11.3 Encounter for screening for infections with a predominantly sexual mode of transmission
CPT/HCPCS: 83001; 83002; 84443; 84702; 85027; 87491; 87591; 99212

== ENCOUNTER 2022-06-09 09:38 | Outpatient (REF) | payer MEDICARE, OTHER, SELFPAY | END 2022-06-09 09:39 | disposition home or self-care (01) | LOC: HO.LNP 09:38 | PROVIDERS: Visit Provider Obstetrics & Gynecology | DX: Z13.89 Encounter for screening for other disorder (principal) ==

== ENCOUNTER 2022-06-16 11:24 | Outpatient (REF) | payer OTHER, MEDICARE, SELFPAY ==
--- NOTE | ~2022-06-16 | XR_ITS ---
EXAMINATION: XR CERVICAL SPINE XR THORACIC SPINE CLINICAL INFORMATION: Pain COMPARISON: None. TECHNIQUE: AP, open-mouth odontoid, lateral, and both oblique views of the cervical spine and AP and lateral views of the thoracic spine FINDINGS: Cervical: Vertebral body heights are normal without evidence of fracture. Alignment is anatomic. No spondylolisthesis. Intervertebral disc heights are normal. No degenerative disc disease. Facet joints are normal. Alignment is maintained at the atlanto-axial articulation. The prevertebral soft tissues are normal. Neural foramina are patent. Thoracic: Vertebral body heights are normal. Alignment is anatomic without spondylolisthesis. Intervertebral disc heights are well-maintained. No degenerative disc disease. Paraspinal soft tissues are unremarkable. No osseous lesions are identified. XR/XR thoracic spine 2V IMPRESSION: Normal radiographs of the cervical and thoracic spine.
--- NOTE | ~2022-06-16 | XR_ITS ---
EXAMINATION: XR SCAPULA, LEFT CLINICAL INFORMATION: M89.8X1 COMPARISON: None TECHNIQUE: AP and scapular Y views of the left scapula. FINDINGS: The bones and soft tissues are normal. No scapular fracture. Glenohumeral and acromioclavicular alignment is normal. XR/XR scapula LT IMPRESSION: Normal left scapula.
--- NOTE | ~2022-06-16 | XR_ITS ---
EXAMINATION: XR SCAPULA, RIGHT CLINICAL INFORMATION: M89.8X1- other specified disorders of bone COMPARISON: None TECHNIQUE: AP and scapular Y views of the right scapula. FINDINGS: Scapula is intact. No fractures. Alignment is normal. There is mild acromioclavicular osteoarthritis. Soft tissues are normal. XR/XR scapula RT IMPRESSION: Mild acromioclavicular osteoarthritis
--- NOTE | ~2022-06-16 | XR_ITS ---
EXAMINATION: XR CERVICAL SPINE XR THORACIC SPINE CLINICAL INFORMATION: Pain COMPARISON: None. TECHNIQUE: AP, open-mouth odontoid, lateral, and both oblique views of the cervical spine and AP and lateral views of the thoracic spine FINDINGS: Cervical: Vertebral body heights are normal without evidence of fracture. Alignment is anatomic. No spondylolisthesis. Intervertebral disc heights are normal. No degenerative disc disease. Facet joints are normal. Alignment is maintained at the atlanto-axial articulation. The prevertebral soft tissues are normal. Neural foramina are patent. Thoracic: Vertebral body heights are normal. Alignment is anatomic without spondylolisthesis. Intervertebral disc heights are well-maintained. No degenerative disc disease. Paraspinal soft tissues are unremarkable. No osseous lesions are identified. XR/XR cervical spine 3V IMPRESSION: Normal radiographs of the cervical and thoracic spine.
== END 2022-06-16 11:25 | disposition home or self-care (01) ==
LOC: HO.XRAY 11:24
PROVIDERS: PCP Internal Medicine; Visit Provider Internal Medicine
DX: M89.8X1 Other specified disorders of bone, shoulder (principal); M54.6 Pain in thoracic spine; M54.2 Cervicalgia
CPT/HCPCS: 72040; 72070; 73010

== ENCOUNTER 2022-08-05 14:21 | Outpatient (REF) | payer OTHER, MEDICARE, SELFPAY ==
--- NOTE | ~2022-08-05 | US_ITS ---
EXAMINATION: US PELVIC AND TRANSVAGINAL CLINICAL INFORMATION: Abnormal uterine and vaginal bleeding. COMPARISON: None TECHNIQUE: Ultrasound of the pelvis is performed using both transabdominal and transvaginal transducers along with Doppler. Transvaginal imaging is performed due to inadequate visualization transabdominally. FINDINGS: UTERUS: The uterus is retroverted and retroflexed measuring 9.2 x 5.4 x 6.6 cm. The double wall endometrial thickness is 11 mm. The uterus is smooth in contour and has normal myometrial echogenicity. No visible fibroid. Nabothian cysts are present in the cervix. ADNEXA: Both ovaries are visualized. There is normal color flow to the adnexa. There is no ovarian torsion. There is no pelvic ascites or fluid collection. Right ovary measures 2.1 x 1.8 x 1.9 cm for a volume of 3.8 mL. Left ovary measures 2.6 x 1.6 x 1.7 cm for a volume of 3.7 mL. A corpus luteum cyst measuring 1.1 cm is present. US/US pelvic and transvaginal IMPRESSION: Negative exam. A cause for the patient's abnormal uterine bleeding has not been found.
[2022-08-05 17:00] LABS: Vitamin D 25-OH Total 31.5 ng/mL (>30)
== END 2022-08-05 14:22 | disposition home or self-care (01) ==
LOC: HO.US 14:21
PROVIDERS: Absent Provider Internal Medicine Endocrinology, Diabetes & Metabolism; PCP Internal Medicine; Visit Provider Obstetrics & Gynecology
DX: N20.0 Calculus of kidney (principal); N93.9 Abnormal uterine and vaginal bleeding, unspecified; E21.3 Hyperparathyroidism, unspecified; E55.9 Vitamin D deficiency, unspecified
CPT/HCPCS: 36415; 76830; 76856; 82306

== ENCOUNTER → 2022-08-09 15:42 | Outpatient (BNVA) | payer OTHER, MEDICARE, SELFPAY | PROVIDERS: PCP Internal Medicine; Visit Provider Internal Medicine Endocrinology, Diabetes & Metabolism | DX: E21.3 Hyperparathyroidism, unspecified (principal) | CPT/HCPCS: 99212 ==

== ENCOUNTER 2022-08-15 13:16 | Outpatient (REF) | payer OTHER, MEDICARE, SELFPAY ==
[2022-08-15 13:36] LABS: MANUAL DIFF FLAG NO
[2022-08-15 14:09] LABS: Basophils Absolute Auto 0.1 X10*3/uL (0.0-0.2); Eosinophils Absolute Auto 0.1 X10*3/uL (0.0-0.4); Eosinophils Percent Auto 1.6 % (0-4); Hematocrit 33.3 % (37.0-47.0); Hemoglobin 9.8 g/dl (12.0-16.0); Imm Gran Abs Auto 0.02 X10*3/uL (0.00-0.03); Imm Gran Pct Auto 0.2 % (0.0-0.4); Lymphocytes Absolute Auto 2.8 X10*3/uL (1.2-4.9); Lymphocytes Percent Auto 32.8 % (20-40); Mean Corpuscular HGB Conc 29.4 g/dl (31.0-35.0); Mean Corpuscular Hemoglobin 23.1 pg (27.0-33.0); Mean Corpuscular Volume 78.5 fL (80.0-98.0); Mean Platelet Volume 10.1 fL (9.4-12.3); Monocytes Absolute Auto 0.6 X10*3/uL (0.1-1.2); Monocytes Percent Auto 6.7 % (2-11); Neutrophils Percent Auto 57.7 % (45-73); Platelet Count 504 X10*3/uL (160-400); Red Blood Count 4.24 X10*6/uL (4.20-5.50); Red Cell Distribution Width 15.4 % (11.0-16.0); White Blood Count 8.7 X10*3/uL (4.8-10.8)
[2022-08-15 14:50] LABS: Iron 19 mcg/dL (30-160); Percent Iron Saturation 5 % (15-50); Total Iron Binding Capacity 391 mcg/dL (228-428); Unsaturated Iron Binding 372 ug/dL
[2022-08-15 14:56] LABS: Vitamin D 25-OH Total 26.7 ng/mL (>30)
[2022-08-16 12:58] LABS: Calcium (PTHI) 10.9 mg/dL (8.6-10.2); PTHI 44 pg/mL (16-77)
== END 2022-08-15 13:17 | disposition home or self-care (01) ==
LOC: HO.LAB 13:16
PROVIDERS: Internal Medicine Endocrinology, Diabetes & Metabolism; PCP Internal Medicine; Visit Provider Internal Medicine
DX: E55.9 Vitamin D deficiency, unspecified (principal); D64.9 Anemia, unspecified; E21.3 Hyperparathyroidism, unspecified
CPT/HCPCS: 36415; 82306; 83540; 83970; 85025

== ENCOUNTER 2022-08-24 15:06 | Outpatient (REF) | payer OTHER, MEDICARE, SELFPAY | END 2022-08-24 15:07 | disposition home or self-care (01) | LOC: HO.LNP 15:06 | PROVIDERS: PCP Internal Medicine; Visit Provider Obstetrics & Gynecology | DX: N93.9 Abnormal uterine and vaginal bleeding, unspecified (principal) | CPT/HCPCS: 58100; 88305 ==

== ENCOUNTER 2022-08-25 07:04 | Day surgery (SDC) | payer OTHER, MEDICARE, SELFPAY ==
[2022-08-22 13:43] VITALS: BMI 24.7
--- NOTE | 2022-08-24 11:59 | P.CONAN_ITS ---
Documented by User: Olga Gill NP 08/24/22 12:01 HPI - Anesthesia Eval Consult details Narrative: 47yo F for Colonoscopy PMFSH Active Problems Active Problems: All Active Problems (Updated 08/16/22 @ 07:33 by Katie Shay MD) Iron deficiency anemia due to chronic blood loss (Acute) Thoracic spine pain (Acute) Pain of right scapula (Acute) Pain of left scapula (Acute) Neck pain (Acute) Abnormal uterine bleeding (Acute) Hypovitaminosis D (Acute) Pre-op examination (Acute) Shingles (Acute) Dizziness (Acute) Medullary sponge kidney (Acute) Amenorrhea (Acute) Bacterial vaginosis (Acute) Microscopic hematuria (Acute) Pelvic pain (Acute) Shortness of breath (Acute) Pain of right scapula (Acute) Unsatisfactory cervical Papanicolaou smear (Acute) Complex ovarian cyst (Acute) Metrorrhagia (Acute) Abnormality of cervix (Acute) Well woman exam (Acute) Dyslipidemia (Acute) Insomnia (Acute) Anemia (Acute) Seizures (Acute) Hypercalcemia (Acute) Hyperparathyroidism (Acute) Nephrolithiasis (Acute) Past Medical History Medical History Anemia Dyslipidemia Insomnia Pain of right scapula Seizures Shortness of breath Family History Family History Father High cholesterol Mother Acute Crohn's disease Maternal Aunt Breast cancer Maternal Uncle Cancer Surgical History Surgical History History of tonsillectomy History of tumor Social History Social History Housing: House Alcohol intake: never Patient Tobacco Use Status: Former Tobacco user Tobacco use type: Cigarette e-Cigarette/Vaping Use: Never Used Second Hand Smoke Exposure: No Advance Directives: No Advance Directives Information Provided: Yes service: No Current occupational status: unemployed Cognitive needs: No Hearing needs: No Vision needs: Yes Meds Allergies Allergy/AdvReac Type Severity Reaction Status Date / Time No Known Allergies Allergy Verified 08/24/22 15:30 [No Known Allergies*] Home Medications Medication Instructions Recorded Confirmed Last Taken Type gabapentin 300 mg capsule 300 mg PO BEDTIME 11/29/21 08/22/22 Unknown History Exam Exam Date and Time: August 24, 2022 1159 Height,Weight and Vital Signs: Height 5 ft 2 in Weight 61.235 kg Pertinent Lab Results Pertinent Lab Results: Laboratory Tests 11/16/21 08/15/22 13:46 13:35 WBC 8.7 Hgb 9.8 L Hct 33.3 L Plt Count 504 H D Sodium 136 Potassium 4.4 Chloride 107 Carbon Dioxide 21 L BUN 5 L Creatinine 0.70 Narrative Narrative: EKG 11/2021 Vent. Rate : 102 BPM ? ? Atrial Rate : 102 BPM ?? P-R Int : 124 ms? QRS Dur : 084 ms ? ? QT Int : 328 ms ? ? ? P-R-T Axes : 043 023 028 degrees ?? QTc Int : 427 ms ? Sinus tachycardia Otherwise normal ECG When compared with ECG of 05-AUG-2021 14:03, Vent. rate has increased BY? 35 BPM ECHO 08/2021 Conclusions: - Essentially normal study ?? Assessment and Plan Assessment Anesthesia Assessment: Chart Reviewed Documented by User: Nikolai Polk MD 08/25/22 08:25 COUNT INCLUDES THE [facility] Past Medical History Medical History Anemia Dyslipidemia Insomnia Pain of right scapula Seizures Shortness of breath Family History Family History Father High cholesterol Mother Acute Crohn's disease Maternal Aunt Breast cancer Maternal Uncle Cancer Family history of problems with anesthesia: No Surgical History Surgical History History of tonsillectomy History of tumor History of Problems with Anesthesia: No Social History Social History Housing: House Alcohol intake: never Patient Tobacco Use Status: Former Tobacco user Tobacco use type: Cigarette e-Cigarette/Vaping Use: Never Used Second Hand Smoke Exposure: No Advance Directives: No Advance Directives Information Provided: Yes service: No Current occupational status: unemployed Cognitive needs: No Hearing needs: No Vision needs: Yes Meds Allergies Allergy/AdvReac Type Severity Reaction Status Date / Time No Known Allergies Allergy Verified 08/24/22 15:30 [No Known Allergies*] Home Medications Medication Instructions Recorded Confirmed Last Taken Type gabapentin 300 mg capsule 300 mg PO BEDTIME 11/29/21 08/22/22 Unknown History Exam Airway Mallampati Class: II TM Dist: >3cm Neck ROM: Full Loose/Missing/Broken Teeth: No Heart: rrr Lungs: cta Assessment and Plan Final Anesthetic Review Family History of Problems with Anesthesia: No History of Problems with Anesthesia: No NPO: Yes ASA Class: II Final Preanesthetic Review: No Changes in Pt Med Stat, Meds/Allgs Chart Reviewed, Consent Obtained/Reviewed and Anes Risks/Benef Reviewed Patient Risk: Low Procedure Risk: Low Anesthetic Plan Anesthetic Plan: MAC: and Agree w/ Assess. and Plan Disposition: Standard PACU
[2022-08-25 07:19] VITALS: BP 128/74; PULSE 81; RESP 16; TEMP 36.7; O2SAT 99; BMI 25.6
[2022-08-25 07:27] LABS: UPreg QC Valid YES; Urine Pregnancy NEGATIVE (NEGATIVE)
--- NOTE | 2022-08-25 08:18 | MHC.SHP ---
Pre-Procedural Eval Section A Date of Service: 08/25/22 Section B Chief Complaint: screening Relevant Family History (Specify if Yes): No Relevant Social History: None Present Medications: see Short Stay Collaborative assessment Medical History: Significant History (Anemia Dyslipidemia Insomnia Pain of right scapula Seizures Shortness of breath) History of Previous Operations: Relevant previous surgery/procedure and date(s) (tonsils) Allergies: Allergies Allergy/AdvReac Type Severity Reaction Status Date / Time No Known Allergies Allergy Verified 08/24/22 15:30 [No Known Allergies*] Review of Systems Sugical H&P ROS: Negative: Constitution, Cardiovascular, Respiratory, Neurological, Psychiatric, Hem-Onc, Allergic/Immunologic, Gastrointestinal, Genitourinary, Musculoskeletal, Integumentary, Endocrine and Eyes/Ears/Nose/Throat Exam Surgical H&P Exam: Normal: HEENT, Normal: Heart, Normal: Lungs, Normal: Extremities, Normal: Abdomen, Normal: Skin and Normal: Neurological Plan Diagnosis/Plan: Unchanged I have reviewed the history and physical and performed a pertinent physical examination on my patient. No changes have occurred unless specified. Time Spent With Patient Time: Total time managing care of this patient today ____ minutes.
--- NOTE | 2022-08-25 08:20 | P.OP_ITS ---
Operative Note Operative Note Date of Service: 08/25/22 Narrative: Operative Information Procedure Description: Colonoscopy Indication: screening Anesthesia: MAC COLONOSCOPY Instrument: Olympus variable stiffness pediatric scope 190L Colonoscopy Monitoring: Vital signs and clinical assessment, continuous EKG monitoring, Pulse oximetry, Carbon Dioxide monitoring and blood pressure monitoring were done throughout the procedure. Colon withdrawal time was 8 minutes. Procedure: The patient was placed in the left lateral decubitis position and pre-procedure medications were administered. After a digital rectal examination of the ano-rectum, the video colonoscope was inserted into the rectum and advanced through the colon to the cecum/TI. The colonoscope was slowly withdrawn in a retrograde panoramic fashion and the colon mucosa was carefully examined including a retroflexed view of the rectum. Findings and interventions are described below. Procedure Difficulty: easy Findings: Terminal Ileum-normal Cecum: 10-12 mm sessile polyp removed with cold snare Ascending Colon: normal Transverse Colon -normal Descending Colon:normal Sigmoid Colon: 5-7 mm sessile polyp removed with cold forceps, mild diverticulosis Rectum: Retroflexion with medium sized internal hemorrhoids, grade I with skin tags Anorectum - normal Colon preparation: [place] Bowel Preparation Scale Right colon; 2 Transverse colon: 2 Left colon; 2 (0 = Unprepared colon segment with mucosa not seen due to solid stool that cannot be cleared. 1 = Portion of mucosa of the colon segment seen, but other areas of the colon segment not well seen due to staining, residual stool and/or opaque liquid. 2 = Minor amount of residual staining, small fragments of stool and/or opaque liquid, but mucosa of colon segment seen well. 3 = Entire mucosa of colon segment seen well with no residual staining, small fragments of stool or opaque liquid) Impression and Post Procedure Diagnosis: polyps internal hemorrhoids diverticular disease Plan: High fiber diet leaflet Avoid straining at stool, epsom salts and sitz bath, anusol supps or cream Repeat Colonoscopy in 3-4 years or earlier if clinically indicated Above findings were reviewed with the patient and relevant handouts were provided if indicated.
[2022-08-25 08:53] VITALS: BP 115/76; PULSE 86; RESP 16; TEMP 37.6; O2SAT 100
[2022-08-25 09:15] VITALS: BP 114/84; PULSE 68; RESP 18; TEMP 36.7; O2SAT 100
== END 2022-08-25 09:40 | disposition home or self-care (01) ==
PROVIDERS: Nurse Practitioner; PCP Internal Medicine; Visit Provider Internal Medicine Gastroenterology
PROC: 0DJD8ZZ Inspection of Lower Intestinal Tract, Via Natural or Artificial Opening Endoscopic (ICD-10-PCS; CPT 45378; principal; 2022-08-25 08:30)
DX: Z12.11 Encounter for screening for malignant neoplasm of colon (principal); D12.0 Benign neoplasm of cecum; K63.5 Polyp of colon; K57.30 Diverticulosis of large intestine without perforation or abscess without bleeding; K64.0 First degree hemorrhoids; K64.4 Residual hemorrhoidal skin tags; D64.9 Anemia, unspecified; E78.5 Hyperlipidemia, unspecified; R06.02 Shortness of breath; R56.9 Unspecified convulsions; Z79.899 Other long term (current) drug therapy; Z87.891 Personal history of nicotine dependence
CPT/HCPCS: 45385; 45380; 81025; 88305

== ENCOUNTER → 2022-09-08 12:52 | Outpatient (BNVA) | payer OTHER, MEDICARE, SELFPAY | PROVIDERS: PCP Internal Medicine; Visit Provider Nurse Practitioner | DX: D12.0 Benign neoplasm of cecum (principal); K57.30 Diverticulosis of large intestine without perforation or abscess without bleeding; K64.0 First degree hemorrhoids; Z98.890 Other specified postprocedural states | CPT/HCPCS: 99212 ==

== ENCOUNTER → 2022-09-19 12:15 | Outpatient (BNVA) | payer OTHER, MEDICARE, SELFPAY | PROVIDERS: PCP Internal Medicine; Visit Provider Obstetrics & Gynecology | DX: N39.3 Stress incontinence (female) (male) (principal) | CPT/HCPCS: 99212 ==

== ENCOUNTER → 2022-09-28 13:25 | Outpatient (BNVA) | payer OTHER, MEDICARE, SELFPAY | PROVIDERS: PCP Internal Medicine; Visit Provider Obstetrics & Gynecology | DX: Z30.430 Encounter for insertion of intrauterine contraceptive device (principal); N93.9 Abnormal uterine and vaginal bleeding, unspecified | CPT/HCPCS: 81025; J7298 ==

== ENCOUNTER → 2022-10-31 14:48 | Outpatient (BNVA) | payer OTHER, MEDICARE, SELFPAY | PROVIDERS: PCP Internal Medicine; Visit Provider Obstetrics & Gynecology | DX: Z30.431 Encounter for routine checking of intrauterine contraceptive device (principal) | CPT/HCPCS: 81025; 99212 ==

== ENCOUNTER 2022-11-17 14:56 | Outpatient (REF) | payer OTHER, MEDICARE, SELFPAY ==
--- NOTE | ~2022-11-17 | MM_ITS ---
EXAMINATION: MM SCREENING DIGITAL BREAST TOMOSYNTHESIS, BILATERAL CLINICAL INFORMATION: Screening. Asymptomatic. The lifetime risk of breast cancer based on the Tyrer-Cuzick Model is 12%. COMPARISON: Mammography: 09/09/2021, 07/07/2020, 07/10/2019, 06/27/2019 TECHNIQUE: Digital breast tomosynthesis is performed in both the craniocaudal and mediolateral oblique views along with computer-aided detection (CAD). Synthesized 2D images are generated from the tomosynthesis. FINDINGS: There are scattered areas of fibroglandular density (ACR BI-RADS breast composition Category b). There are no significant masses, abnormal calcifications, or other abnormalities. Parenchymal pattern is similar to prior studies. There is no developing density or architectural abnormality. The axilla and skin contours are unremarkable. No significant changes. MM/MM tomosynthesis screening BI IMPRESSION: No mammographic evidence of malignancy. ASSESSMENT: BI-RADS 1: Negative RECOMMENDATION: Routine annual mammography screening. This patient's information was entered into a reminder system with a target due date for their next mammogram.
== END 2022-11-17 14:57 | disposition home or self-care (01) ==
LOC: HO.MAMMO 14:56
PROVIDERS: PCP Internal Medicine; Visit Provider Internal Medicine
DX: Z12.31 Encounter for screening mammogram for malignant neoplasm of breast (principal)
CPT/HCPCS: 77063; 77067

== ENCOUNTER → 2023-01-17 15:02 | Outpatient (BNVA) | payer OTHER, MEDICARE, SELFPAY | PROVIDERS: PCP Internal Medicine; Visit Provider Obstetrics & Gynecology ==

== ENCOUNTER 2023-06-02 15:13 | Outpatient (AMB) | payer OTHER, MEDICARE, SELFPAY ==
[2023-06-02 15:18] VITALS: BP 128/82; PULSE 80; O2SAT 98; BMI 24.3
--- NOTE | 2023-06-02 15:18 | A.OFFPC_ITS ---
Vital Signs 06/02/23 15:18 Height 5 ft 2 in Weight 133 lb BMI 24.3 BP 128/82 Blood Pressure Location Lt brachial Position Sitting Pulse 80 Pulse Source Pulse Oximeter Pulse Oximetry (%) 98 Oxygen Delivery Method Room Air Intake Visit Reasons: dizziness past few weeks Intake Note: pt states dizziness for a few weeks Detective Supervisor Required: No Allergies No Known Allergies [No Known Allergies*] Allergy (Verified 06/02/23 15:34) Medication List - Last Reconciled 06/02/23 by MARÍA Rojo gabapentin 300 mg PO BEDTIME 90 days lamotrigine 100 mg PO TID 90 days levonorgestrel (Mirena) intrauterine Tobacco use date assessed: 06/02/23 HPI dizziness past few weeks HPI Details Patient is a 47-year-old female who presents today for an office visit due to intermittent dizziness for the past few weeks. Patient of Dr. Biggs. Medical history significant for seizures - last seizure over 2 years ago- followed by Neurology, anemia among others. Patient reports dizziness intermittent the last couple minutes and then resolves, associated symptoms pressure on the back of her head. She reports no dizziness or pressure for the past few days. Dizziness was random, not related to activity. No shortness of breath or chest pain. PFSH Medical History Shingles Shortness of breath Pain of right scapula Dyslipidemia Insomnia Anemia Seizures Surgical History Hx of colonoscopy History of tumor History of tonsillectomy Family History Father High cholesterol Mother Acute Crohn's disease Maternal Aunt Breast cancer Maternal Uncle Cancer Social History Housing: House Alcohol intake: never Patient Tobacco Use Status: Former Tobacco user Tobacco use type: Cigarette e-Cigarette/Vaping Use: Never Used Second Hand Smoke Exposure: No service: No Current occupational status: unemployed Cognitive needs: No Hearing needs: No Vision needs: Yes Female Reproductive History Menstrual Age of Menarche: 15 Questionnaire Thrive Questionnaire Date Thrive assessed: 08/15/22 AUDIT C Alcohol Use Questionnaire (AUDIT-C) 1. How often do you have a drink containing alcohol?: Never Total Score: 0 Score Reviewed/Action Taken: No DESTINY-7 AMB Questionnaire DESTINY-7 Date DESTINY - 7 assessed: 08/15/22 Source: Developed by Drs. Nick Wen, Lauren Miller, Milton Palomino and colleagues, with an educational brady from [employer]. Review of Systems Const Denies body aches, Denies chills, Denies fever(s) and Denies headache(s) ENT Reports dizziness (No dizziness for the past few days), Denies otalgia, Denies headache(s), Denies nasal discharge, Denies sinus pain and Denies sore throat Card Denies chest pain, Denies edema, Denies lightheadedness and Denies dyspnea Resp Denies cough, Denies dyspnea and Denies wheezing GI Denies abdominal pain Denies dysuria Musc Denies myalgias Skin/Breast Denies rash Neuro Reports dizziness (No dizziness for the past few days) and Denies headache(s) Aller/Immun Denies wheezing Physical exam (Primary Care) Vital Signs: Last Vital Signs Pulse 80 06/02/23 15:18 BP 128/82 06/02/23 15:18 Pulse Ox 98 06/02/23 15:18 Oxygen Delivery Method Room Air 06/02/23 15:18 BMI result Body Mass Index 24.3 Tobacco/Smoking Status: Tobacco use Status Tobacco use date assessed 06/02/23 06/02/23 15:19 Patient Tobacco Use Status Former Tobacco user 06/02/23 15:19 Tobacco use type Cigarette 06/02/23 15:19 e-Cigarette/Vaping Use Never Used 06/02/23 15:19 Thrive Assessment: Date of Thrive Assessment Date Thrive assessed 08/15/22 06/02/23 15:19 Const General: cooperative and no acute distress Orientation/consciousness: patient oriented x3 HENMT Other: Bilateral ear canal with mild cerumen, visualized TMs normal Head: Yes normocephalic and Yes atraumatic Face and sinus: Yes sinuses nontender Mouth: oropharynx normal and moist mucous membranes Throat: Yes posterior oropharynx normal Eyes General: appearance normal, both eyes and all related structures Pupils: Equal, round and reactive pupils present EOM: EOMs intact bilaterally Neck Neck: Yes normal visual inspection, Yes full ROM and Yes no lymphadenopathy Resp Effort & Inspection: normal respiratory effort and able to speak in complete sentences Auscultation: clear to auscultation bilaterally, no crackles, no rales, no rhonchi and no wheezes Cardio Rate: regular rate Rhythm: regular rhythm Heart sounds: S1 normal heart sound present, S2 normal heart sound present and no murmurs GI Auscultation: normal bowel sounds Skin General skin exam: no rashes or lesions noted Neuro General: patient oriented x3 and CN's II-XI intact bilaterally Cranial nerves: Yes Equal, round and reactive pupils present Gait exam (Neuro): Normal gait present Motor exam (neuro): 5/5 motor strength present throughout Extrem General: Yes full ROM and No edema Assessment and Plan Assessment & Plan (1) Dizziness: Code(s): R42 - Dizziness and giddiness Plan: Patient denies dizziness for the past few days. She was encouraged to complete her blood work that was ordered by her PCP. Last hemoglobin 9.8 08/2022 - not on iron supplement. Patient agreed with the plan. Signs and symptoms reviewed when to notify provider or go to the emergency department. Coding Level of Care Code Est Pt Level 3 (19538) Diagnoses Dizziness R42
== END 2023-06-02 16:38 | disposition home or self-care (01) ==
PROVIDERS: PCP Internal Medicine; Visit Provider Nurse Practitioner Family
DX: R42 Dizziness and giddiness (principal)
CPT/HCPCS: 99213

== ENCOUNTER 2023-06-07 08:26 | Outpatient (REF) | payer OTHER, MEDICARE, SELFPAY ==
[2023-06-07 08:41] LABS: MANUAL DIFF FLAG NO
[2023-06-07 09:05] LABS: Basophils Absolute Auto 0.1 X10*3/uL (0.0-0.2); Basophils Percent Auto 1.3 % (0-2); Eosinophils Absolute Auto 0.1 X10*3/uL (0.0-0.4); Eosinophils Percent Auto 1.8 % (0-4); Hematocrit 43.5 % (37.0-47.0); Hemoglobin 14.2 g/dl (12.0-16.0); Imm Gran Abs Auto 0.01 X10*3/uL (0.00-0.03); Imm Gran Pct Auto 0.1 % (0.0-0.4); Lymphocytes Absolute Auto 2.3 X10*3/uL (1.2-4.9); Lymphocytes Percent Auto 29.4 % (20-40); Mean Corpuscular HGB Conc 32.6 g/dl (31.0-35.0); Mean Corpuscular Hemoglobin 30.1 pg (27.0-33.0); Mean Corpuscular Volume 92.2 fL (80.0-98.0); Mean Platelet Volume 10.3 fL (9.4-12.3); Monocytes Absolute Auto 0.6 X10*3/uL (0.1-1.2); Monocytes Percent Auto 7.1 % (2-11); Neutrophils Absolute Auto 4.7 x10*3/uL (2.0-8.3); Neutrophils Percent Auto 60.3 % (45-73); Platelet Count 333 X10*3/uL (160-400); Red Blood Count 4.72 X10*6/uL (4.20-5.50); Red Cell Distribution Width 13.6 % (11.0-16.0); White Blood Count 7.7 X10*3/uL (4.8-10.8)
[2023-06-07 10:06] LABS: Alanine Aminotransferase 9 U/L (0-31); Albumin Level 4.6 g/dL (3.5-5.0); Alkaline Phosphatase 45 U/L (39-117); Anion Gap 13 (12-20); Aspartate Amino Transferase 15 U/L (5-31); Bilirubin Total 0.7 mg/dL (0.0-1.0); Blood Urea Nitrogen 7 mg/dL (9-16); Calcium 10.6 mg/dL (8.4-10.2); Carbon Dioxide 26 mmol/L (22-29); Chloride 106 mmol/L (96-108); Cholesterol 249 mg/dL (<200); Estimated Glomerular Filt Rate > 60; Glucose Fasting 86 mg/dL (60-99); HDL Cholesterol 48 mg/dL (>40); Iron 157 mcg/dL (30-160); LDL Cholesterol Calculated 183 mg/dL (<100); Percent Iron Saturation 50 % (15-50); Potassium 4.2 mmol/L (3.3-5.1); Sodium 141 mmol/L (135-145); Total Iron Binding Capacity 314 mcg/dL (228-428); Total Protein 7.8 g/dL (6.5-8.0); Triglycerides 94 mg/dL (<150); Unsaturated Iron Binding 157 ug/dL
[2023-06-07 10:23] LABS: Vitamin D 25-OH Total 28.5 ng/mL (>30)
[2023-06-08 13:48] LABS: Calcium (PTHI) 10.5 mg/dL (8.6-10.2); PTHI 70 pg/mL (16-77)
== END 2023-06-07 08:27 | disposition home or self-care (01) ==
LOC: HO.LAB 08:26
PROVIDERS: Internal Medicine Endocrinology, Diabetes & Metabolism; PCP Internal Medicine; Visit Provider Internal Medicine
DX: D64.9 Anemia, unspecified (principal); E55.9 Vitamin D deficiency, unspecified; R56.9 Unspecified convulsions; E78.5 Hyperlipidemia, unspecified
CPT/HCPCS: 36415; 80053; 80061; 82306; 83540; 83970; 85025

== ENCOUNTER 2023-06-08 12:15 | Outpatient (REF) | payer OTHER, MEDICARE, SELFPAY ==
[2023-06-08 13:45] LABS: Calcium 10.8 mg/dL (8.4-10.2)
[2023-06-08 15:47] LABS: Appearance Urine Cloudy; Color Urine Yellow; Glucose Urine UA Negative (Negative); Leukocyte Esterase Urine Trace (Negative); Nitrite Urine Negative (Negative); PH 7.5 (5.0-9.0); Specific Gravity - Urine 1.015 (1.005-1.025); UMIC TRIGGER UACC YES; Urine Blood Negative (Negative); Urine Ketones Negative (Negative); Urine Protein Negative (Neg-Trace)
[2023-06-08 16:06] LABS: Bacteria Urine None Seen (None Seen); UACC Culture Trigger YES
== END 2023-06-08 12:16 | disposition home or self-care (01) ==
LOC: HO.LAB 12:15
PROVIDERS: Internal Medicine Endocrinology, Diabetes & Metabolism; PCP Internal Medicine; Visit Provider Internal Medicine
DX: E83.52 Hypercalcemia (principal); R39.9 Unspecified symptoms and signs involving the genitourinary system
CPT/HCPCS: 36415; 81001; 82310; 87086

== ENCOUNTER 2023-06-22 15:16 | Outpatient (AMB) | payer OTHER, MEDICARE, SELFPAY ==
--- NOTE | 2023-06-22 15:18 | MHC.OFFVIS ---
Intake Vital Signs 06/22/23 15:20 Height 5 ft 2 in Weight 131 lb 9.855 oz BMI 24.1 BP 118/64 Blood Pressure Location Lt brachial Position Sitting Pulse 54 Pulse Source Pulse Oximeter Intake Visit Reasons: Hyperparathyroidism Intake Note: Patient present for Hyperparathyroidism follow up visit. 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 She is feeling well. She has no complaints. She was found to be mildly hyperparathyroid with intermittent mildly elevated calcium as part of workup for nephrolithiasis. She has past medical history of a brain tumor status post surgery on 2008 which she does not remember the name but reports was back benign tumor. She denies radiation therapy. She has been on anti seizures medications since 1994. She denies prior fragility fractures, denies personal or family GERD, she denies FH of fractures or osteoporosis, negative family history of hypercalcemia, sudden or nephrolithiasis. She denies steroids used, she used to be smoker quit 10 years ago., She was supposed to be on vitamin-D 50,000 weekly prescribe I would urology but she never started. She has only 1 serving of calcium in diet. She denies any supplements or herbal medications. Not taking Vitamin D currently. Not passed any stones [facility] range was 9.3-10.6 mg per dL. The calcium was mostly in the 9 mg range . She has had 4 episodes of mildly elevated calcium 09/01/2008 10.3 mg/dL, albumin 4.9 grams/deciliter 08/12/2014 10.6 mg/dL, no albumin available with this blood test 01/15/2016 10.3 mg/dL, albumin 4.6 grams/deciliter 06/21/201910.5 mg/dL, albumin 4.9 grams/deciliter Trended alkaline phosphatase since 1996 range is 35 to 66 units/liter Her trended albumin from 4186-8274 range from 4.1-5.1 g per dL 08/29/2018 vitamin-D 12.9 ng/mL 07/29/2015 vitamin-D 23.3 ng/mL 10/07/2014 PTH level 53 pg/mL , calcium 9.7 mg/dL, albumin 4.6 grams/deciliter 08/06/2020 RIGHT KIDNEY: 11.3 x 5.3 x 6.4 cm (SAG x AP x TRV). Medullary nephrocalcinosis. 1.9 cm anechoic right upper pole simple cyst. There is a 6 mm echogenic, shadowing lower pole calculus and a 4 mm echogenic, shadowing upper pole calculus. Renal cortical thickness is normal. No hydronephrosis. LEFT KIDNEY: 11.8 x 5.6 x 5.4 cm (SAG x AP x TRV). 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 1.8 cm simple cyst of the upper pole. 2.2 cm simple cyst of the lower pole. There is a prominent extrarenal pelvis but no calyceal dilation to suggest hydronephrosis. 5 mm echogenic mid renal calculus and a 3 mm echogenic, shadowing lower pole calculus. Date of Service: 12/24/20 US THYROID Right Thyroid Lobe: 5.0 x 1.2 x 1.3 cm, volume 4.1 mL. Previously 5.0 x 1.5 x 1.2 cm, volume 4.5 mL. Parenchyma: The gland echotexture is homogeneous. Thyroid vascularity is normal. Left Thyroid Lobe: 5.0 x 1.1 x 1.4 cm, volume 4.1 mL. Previously 5.1 x 0.9 x 1.2 cm, volume 3.0 mL. Parenchyma: The gland echotexture is homogeneous. Thyroid vascularity is normal. Isthmus: 0.18 cm in maximum AP dimension. Previously 0.16 cm. Estimated total number of nodules greater than or equal to 1 cm: 0. Rail Switchman nodules are described as follows: No focal thyroid nodule is seen. No parathyroid adenoma is identified. NODES: No lymphadenopathy is seen in the tissue surrounding the thyroid gland. Date of Service: 01/13/21 BONE DENSITOMETRY FINDINGS: AP SPINE L1-L4: BMD 1.063 g/cm2, T-score -1.0, Z-score -1.0, Z-score within expected range for age. LEFT FEMUR, NECK: BMD 0.800 g/cm2, T-score -1.7, Z-score -1.2, Z-score within expected range for age. LEFT FEMUR, TOTAL: BMD 0.861 g/cm2, T-score -1.2, Z-score -0.9, Z-score within expected range for age. LEFT FOREARM RADIUS 33%: BMD 0.726 g/cm2, T-score -1.7, Z-score -1.7, Z-score within expected range for age. Laboratory Tests 12/12/19 07/27/20 09/23/20 07:40 09:48 08:58 Creatinine Estimated GFR Calcium Ionized Calcium Phosphorus Magnesium Alkaline Phosphata se Alk Phos Bone Spec ific Albumin 25-OH Vitamin D To jackie 1,25 Dihydroxy Vit D 25-Hydroxy Vitamin D2 <4 1,25 Dihydroxy Vit D2 25-Hydroxy Vitamin D3 14 1,25 Dihydroxy Vit D3 TSH PTH Intact 77 H 68 H Calcium (PTH Intac t) Ur 24 Hour Volume Ur Creatinine mg/d L Ur Creatinine 24 H our Ur Calcium 24 Hr Calcium/Creat 24 H r 11/26/20 12/15/20 12/15/20 14:07 10:53 10:53 Creatinine 0.74 Estimated GFR > 60 Calcium 10.5 H Ionized Calcium 5.4 Phosphorus 2.7 Magnesium 2.1 Alkaline Phosphata se 57 Alk Phos Bone Spec ific Albumin 4.8 25-OH Vitamin D To jackie 14.7 1,25 Dihydroxy Vit D 25-Hydroxy Vitamin D2 1,25 Dihydroxy Vit D2 25-Hydroxy Vitamin D3 1,25 Dihydroxy Vit D3 TSH 1.26 PTH Intact Calcium (PTH Intac t) Ur 24 Hour Volume Ur Creatinine mg/d L Ur Creatinine 24 H our Ur Calcium 24 Hr Calcium/Creat 24 H r 12/15/20 12/17/20 12/17/20 10:53 10:35 10:35 Creatinine Estimated GFR Calcium Ionized Calcium Phosphorus Magnesium Alkaline Phosphata se Alk Phos Bone Spec ific 7.9 Albumin 25-OH Vitamin D To jackie 1,25 Dihydroxy Vit D 76 H 25-Hydroxy Vitamin D2 1,25 Dihydroxy Vit D2 <8 25-Hydroxy Vitamin D3 1,25 Dihydroxy Vit D3 76 TSH PTH Intact 100 H Calcium (PTH Intac t) 10.3 H Ur 24 Hour Volume 1075 Ur Creatinine mg/d L 63.96 Ur Creatinine 24 H our 0.68 Ur Calcium 24 Hr 194 Calcium/Creat 24 H r 286 H Laboratory Tests 08/29/18 10/15/18 04/01/19 11:05 08:45 08:50 Creatinine Calcium 9.9 9.7 10.1 Albumin 25-OH Vitamin D To jackie 25-Hydroxy Vitamin D2 25-Hydroxy Vitamin D3 TSH PTH Intact Calcium (PTH Intac t) 06/21/19 12/12/19 12/12/19 09:10 07:40 07:40 Creatinine Calcium 10.5 H 9.5 D 9.7 Albumin 25-OH Vitamin D To jackie 25-Hydroxy Vitamin D2 25-Hydroxy Vitamin D3 TSH PTH Intact 77 H Calcium (PTH Intac t) 07/27/20 07/27/20 09/23/20 09:48 09:48 08:58 Creatinine 0.73 Calcium 9.9 10.3 H Albumin 4.5 25-OH Vitamin D To jackie 25-Hydroxy Vitamin D2 25-Hydroxy Vitamin D3 TSH PTH Intact 68 H Calcium (PTH Intac t) 10.1 09/23/20 11/26/20 08:58 14:07 Creatinine Calcium Albumin 25-OH Vitamin D To jackie 14 L 25-Hydroxy Vitamin D2 <4 25-Hydroxy Vitamin D3 14 TSH 1.26 PTH Intact Calcium (PTH Intac t) PFSH Medical History Shingles Shortness of breath Pain of right scapula Dyslipidemia Insomnia Anemia Seizures Surgical History Hx of colonoscopy History of tumor History of tonsillectomy Family History Father High cholesterol Mother Acute Crohn's disease Maternal Aunt Breast cancer Maternal Uncle Cancer Social History Housing: House Alcohol intake: never Patient Tobacco Use Status: Former Tobacco user Tobacco use type: Cigarette e-Cigarette/Vaping Use: Never Used Second Hand Smoke Exposure: No service: No Current occupational status: unemployed Cognitive needs: No Hearing needs: No Vision needs: Yes Female Reproductive History Menstrual Age of Menarche: 15 Physical Exam Vital Signs: Last Vital Signs Pulse 54 06/22/23 15:20 BP 118/64 06/22/23 15:20 BMI result Body Mass Index 24.1 Assessment & Plan Assessment & Plan (1) Hyperparathyroidism: Code(s): E21.3 - Hyperparathyroidism, unspecified Plan: This is a 46-year-old white female with a history of elevated PTH with intermittent elevated calcium and nephrolithiasis secondary to primary hyperparathyroidism with mild vitamin-D deficiency Plan is to have patient take 1000 IU of vitamin-D3 . If patient does indeed have primary hyperparathyroidism, she is a candidate for parathyroid exploration considering her age and presence of nephrolithiasis. Will check 24 hour urine for calcium and creatinine as well as serum calcium to rule out FHH if not already done Orders: Orders Calcium Today E21.3 - Hyperparathyroidism, unspecified Calcium, 24 Hr Ur Today E21.3 - Hyperparathyroidism, unspecified Creatinine, 24 Hr Group Today E21.3 - Hyperparathyroidism, unspecified Albumin Level Today E21.3 - Hyperparathyroidism, unspecified Creatinine Today E21.3 - Hyperparathyroidism, unspecified Referrals General Surgery Referral E21.3 - Hyperparathyroidism, unspecified Coding Level of Care Code Est Pt Level 3 (33833) Diagnoses Hyperparathyroidism E21.3
[2023-06-22 15:20] VITALS: BP 118/64; PULSE 54; BMI 24.1
== END 2023-06-22 15:52 | disposition home or self-care (01) ==
PROVIDERS: PCP Internal Medicine; Visit Provider Internal Medicine Endocrinology, Diabetes & Metabolism
DX: E21.3 Hyperparathyroidism, unspecified (principal)
CPT/HCPCS: 99213

== ENCOUNTER → 2023-06-22 15:16 | Outpatient (BNVA) | payer OTHER, MEDICARE, SELFPAY | PROVIDERS: PCP Internal Medicine; Visit Provider Internal Medicine Endocrinology, Diabetes & Metabolism ==

== ENCOUNTER 2023-07-28 14:59 | Outpatient (REF) | payer OTHER, MEDICARE, SELFPAY ==
[2023-07-28 15:51] LABS: Appearance Urine Clear; Color Urine Yellow; Glucose Urine UA Negative (Negative); Leukocyte Esterase Urine Small (1+) (Negative); Nitrite Urine Negative (Negative); PH 6.5 (5.0-9.0); Specific Gravity - Urine 1.015 (1.005-1.025); UMIC TRIGGER UACC YES; Urine Blood Negative (Negative); Urine Ketones Negative (Negative); Urine Protein Negative (Neg-Trace)
[2023-07-28 16:28] LABS: Bacteria Urine None Seen (None Seen); Hyaline Casts Urine 0-2 /LPF (0-2); UACC Culture Trigger YES
== END 2023-07-28 15:00 | disposition home or self-care (01) ==
LOC: HO.LAB 14:59
PROVIDERS: PCP Internal Medicine; Visit Provider Internal Medicine
DX: R39.9 Unspecified symptoms and signs involving the genitourinary system (principal)
CPT/HCPCS: 81001; 87086

== ENCOUNTER 2023-09-12 08:58 | Outpatient (REF) | payer OTHER, MEDICARE, SELFPAY | END 2023-09-12 08:59 | disposition home or self-care (01) | LOC: HO.LAB 08:58 | PROVIDERS: PCP Internal Medicine; Visit Provider Internal Medicine Endocrinology, Diabetes & Metabolism | DX: Z13.89 Encounter for screening for other disorder (principal) ==

== ENCOUNTER 2023-09-13 09:04 | Outpatient (REF) | payer OTHER, MEDICARE, SELFPAY ==
[2023-09-13 10:18] LABS: Albumin Level 4.5 g/dL (3.5-5.0); Calcium 10.5 mg/dL (8.4-10.2); Estimated Glomerular Filt Rate > 60
[2023-09-13 14:02] LABS: Creatinine, mg/dL 67.81
[2023-09-13 14:29] LABS: Creatinine, 24Hr Urine 0.8 G/Day (1.0-2.0); Total Volume 24 Hour Urine 1125 mL
[2023-09-14 20:08] LABS: Calcium, 24 Hr Urine 214 mg/24 h; Calcium/Creatinine Ratio 284 mg/g creat (30-275); Creatinine 24Hr Urine 0.75 g/24 h (0.50-2.15)
== END 2023-09-13 09:05 | disposition home or self-care (01) ==
LOC: HO.LAB 09:04
PROVIDERS: PCP Internal Medicine; Visit Provider Internal Medicine Endocrinology, Diabetes & Metabolism
DX: E21.3 Hyperparathyroidism, unspecified (principal)
CPT/HCPCS: 36415; 82040; 82310; 82340; 82565; 82570

== ENCOUNTER 2023-12-06 13:35 | Outpatient (REF) | payer OTHER, MEDICARE, SELFPAY | END 2023-12-06 13:36 | disposition home or self-care (01) | LOC: HO.MAMMO 13:35 | PROVIDERS: PCP Internal Medicine; Visit Provider Internal Medicine | DX: Z12.31 Encounter for screening mammogram for malignant neoplasm of breast (principal) | CPT/HCPCS: 77063; 77067 ==

== ENCOUNTER → 2023-12-06 14:00 | Outpatient (BNV) | payer OTHER, MEDICARE, SELFPAY | PROVIDERS: PCP Internal Medicine; Visit Provider Radiology Diagnostic Radiology | DX: Z12.31 Encounter for screening mammogram for malignant neoplasm of breast (principal) | CPT/HCPCS: 77063; 77067 ==

== ENCOUNTER 2024-03-28 17:26 | Outpatient (AMB) | payer OTHER, MEDICARE, SELFPAY ==
[2024-03-28 17:28] VITALS: BP 118/80; BMI 23.2
--- NOTE | 2024-03-28 17:28 | MHC.PC.OV ---
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: No Accompanied by: Self / Same As Patient Allergies No Known Allergies [No Known Allergies*] Allergy (Verified 03/28/24 17:33) Medication List - Last Reconciled 03/28/24 by Katie Shay MD gabapentin 300 mg PO BEDTIME 90 days lamotrigine 100 mg PO TID 90 days levonorgestrel (Mirena) intrauterine Tobacco use date assessed: 03/28/24 Dental Screening Dental Screen Date: 03/28/24 Did you have a dental visit in the last 12 months?: Yes Did you have a dental problem in the last 6 months where you did not have access to dental care?: No Was dental information given to patient?: Patient has dentist HPI HPI Comments History of Present Illness Details This is a 48-year-old female with seizures that comes for her physical exam. Seizures are follow by Neurology has been stable. Mammogram done 2023 was normal. Pap smears are up-to-date as per patient. Colonoscopy done 2022 shows sessile serrated polyp. No acute complaints. [facility] Medical History (Updated 03/30/24 @ 08:53 by Katie Shay MD) Hyperparathyroidism Shingles Shortness of breath Pain of right scapula Dyslipidemia Insomnia Anemia Seizures Surgical History Hx of parathyroidectomy Hx of colonoscopy History of tumor History of tonsillectomy Family History Father High cholesterol Mother Acute Crohn's disease Maternal Aunt Breast cancer Maternal Uncle Cancer Social History Housing: House Alcohol intake: never Patient Tobacco Use Status: Former Tobacco user Tobacco use type: Cigarette e-Cigarette/Vaping Use: Never Used Second Hand Smoke Exposure: No service: No Current occupational status: unemployed Cognitive needs: No Hearing needs: No Vision needs: Yes Female Reproductive History Menstrual Age of Menarche: 15 Questionnaire PHQ-9 Over the last 2 weeks, how often have you been bothered by any of the following problems? 1. Little interest or pleasure in doing things: not at all 2. Feeling down, depressed, or hopeless: not at all 3. Trouble falling or staying asleep, or sleeping too much: not at all 4. Feeling tired or having little energy: not at all 5. Poor appetite or overeating: not at all 6. Feeling bad about yourself - or that you are a failure or have let yourself or your family down: not at all 7. Trouble concentrating on things, such as reading the newspaper or watching television: not at all 8. Moving or speaking so slowly that other people could have noticed. Or the opposite - being so fidgety or restless that you have been moving around a lot more than usual: not at all 9. Thoughts that you would be better off or of hurting yourself in some way: not at all Total score: 0 Depression Screening Interpretation: Negative Depression Screening Done: Yes 98707 - PHQ-9 Billing: Yes Source: Developed by Drs. Nick Wen, Lauren Miller, Milton Palomino and colleagues, with an educational brady from [employer]. Thrive Questionnaire Date Thrive assessed: 03/28/24 I am a: Patient What is your living situation today?: I have a steady place to live Within the past 12 months, did the food you bought not last and you didn't have the money to get more?: Never true Within the past 12 months, did you worry whether your food would run out before you got money to buy more?: Never true Do you have trouble paying for medicines?: No Do you have trouble getting transportation to medical appointments?: No Do you have trouble paying your heating and electricity bill?: No Do you have trouble taking care of your child, family member or friend?: No Do you have trouble with day-to-day activities such as bathing, preparing meals, shopping, managing finances, etc.?: No Are you currently unemployed and looking for a job?: No Are you interested in more education?: No Please select the resources that you would like help with: None Currently or been in a relationship where the following occur: No concerns reported THRIVE Score: 0 AUDIT C Alcohol Use Questionnaire (AUDIT-C) 1. How often do you have a drink containing alcohol?: Never Total Score: 0 Score Reviewed/Action Taken: No DESTINY-7 AMB Questionnaire DESTINY-7 Date DESTINY - 7 assessed: 03/28/24 Feeling nervous, anxious, or on edge: 0 = Not at all Not being able to stop or control worryin = Not at all Worrying too much about different things: 0 = Not at all Trouble relaxin = Not at all Being so restless that it is hard to sit still: 0 = Not at all Becoming easily annoyed or irritable: 0 = Not at all Feeling afraid as if something awful might happen: 0 = Not at all Total DESTINY-7 score (0-4 normal; 5-9 mild; 10-14 moderate; 15-21 severe): 0 Source: Developed by Drs. Nick Wen, Lauren Miller, Milton Palomino and colleagues, with an educational brady from [employer]. DESTINY-7 Assessment Billing DESTINY-7 Assessment Tool: DESTINY-7 Assessment 94956 Review of Systems Const All systems reviewed & are unremarkable except as noted in HPI and below Card Denies chest pain at rest, Denies chest pain with activity, Denies edema, Denies irregular heart rhythm, Denies claudication, Denies dyspnea, Denies dyspnea on exertion, Denies orthopnea, Denies paroxysmal nocturnal dyspnea and Denies slow heart rate Resp Denies cough, Denies dyspnea and Denies dyspnea on exertion GI Denies abdominal pain, Denies change in bowel habits, Denies excessive flatus, Denies nausea and Denies vomiting Denies urinary incontinence, Denies urinary hesitancy and Denies urinary urgency Musc Denies atrophy, Denies deformity and Denies limited range of motion Skin/Breast Denies bleeding lesions, Denies changing lesions and Denies rash Physical exam (Primary Care) Vital Signs: Last Vital Signs BP 118/80 03/28/24 17:28 BMI result Body Mass Index 23.2 Tobacco/Smoking Status: Tobacco use Status Tobacco use date assessed 03/28/24 03/28/24 17:33 Patient Tobacco Use Status Former Tobacco user 03/28/24 17:33 Tobacco use type Cigarette 03/28/24 17:33 e-Cigarette/Vaping Use Never Used 03/28/24 17:33 PHQ-9: PHQ-9 Score PHQ-9: Total score 0 03/28/24 17:33 Depression Screening Interpretation: Negative Thrive Assessment: Date of Thrive Assessment Date Thrive assessed 03/28/24 03/28/24 17:33 Currently or been in a relationship where the following occur: No concerns reported [facility] Head: Yes normal to inspection, Yes normocephalic and Yes atraumatic Ears: external ears normal Eyes General: appearance normal, both eyes and all related structures Eyelids: Yes eyelids normal Conjunctivae: conjunctivae normal Neck Neck: Yes normal visual inspection and Yes supple Resp Effort & Inspection: normal respiratory effort Auscultation: clear to auscultation bilaterally Cardio Jugular venous distension: no JVD Rate: regular rate Rhythm: regular rhythm Heart sounds: S1 normal heart sound present and S2 normal heart sound present GI Inspection: Yes normal to inspection Palpation (GI): Soft to palpation and nontender Auscultation: normal bowel sounds Skin General skin exam: no rashes or lesions noted Neuro General: no focal motor deficits Extrem General: Yes full ROM Psych Appearance: grossly normal Assessment and Plan Assessment & Plan (1) Physical exam: Code(s): Z00.00 - Encounter for general adult medical examination without abnormal findings Plan: Repeat in a year. (2) Seizures: Code(s): R56.9 - Unspecified convulsions Plan: Continue Lamictal. Follow-up with Neurology. Orders: Orders Lipid Panel 03/28/24 Z00. - Encounter for general adult medical examination without abnormal findings Comprehensive [place]. Panel Fast 03/28/24 Z00. - Encounter for general adult medical examination without abnormal findings Coding Level of Care Code Est Pt Prev Care 40-64y(00796) Diagnoses Physical exam Z00.00 Seizures R56.9 Additional Codes DESTINY-7 Assessment Billing - DESTINY-7 Assessment Tool: DESTINY-7 Assessment [id number] ([id number]) Time Spent (min) 30
== END 2024-03-28 17:43 | disposition home or self-care (01) ==
PROVIDERS: PCP Internal Medicine; Visit Provider Internal Medicine
DX: Z00.00 Encounter for general adult medical examination without abnormal findings (principal); R56.9 Unspecified convulsions
CPT/HCPCS: 99396

== ENCOUNTER 2024-04-03 14:12 | Outpatient (AMB) | payer OTHER, MEDICARE, SELFPAY ==
--- NOTE | 2024-04-03 14:16 | A.OFFVIS_ITS ---
Vital Signs 04/03/24 14:19 Height 5 ft 2 in Weight 129 lb 10.109 oz BMI 23.7 BP 110/70 Blood Pressure Location Lt brachial Position Sitting Pulse 72 Pulse Source Pulse Oximeter Intake Visit Reasons: Hyperparathyroidism/CONFIRMED Intake Note: Patient last seen on 06/22/23 present today for Hyperparathyroidism follow up. Patient underwent right and left superior Parathyroidectomy on 01/03/24. 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 She is feeling well. She has no complaints. She was found to be mildly hyperparathyroid with intermittent mildly elevated calcium as part of workup for nephrolithiasis. She has past medical history of a brain tumor status post surgery on 2008 which she does not remember the name but reports was back benign tumor. She denies radiation therapy. She has been on anti seizures medications since 1994. She denies prior fragility fractures, denies personal or family GERD, she denies FH of fractures or osteoporosis, negative family history of hypercalcemia, sudden or nephrolithiasis. She denies steroids used, she used to be smoker quit 10 years ago., She was supposed to be on vitamin-D 50,000 weekly prescribe I would urology but she never started. She has only 1 serving of calcium in diet. She denies any supplements or herbal medications. Not taking Vitamin D currently. Not passed any stones Her trended calcium from 2005 to 2019 in [employer] the range was 9.3-10.6 mg per dL. The calcium was mostly in the 9 mg range . She has had 4 episodes of mildly elevated calcium 09/01/2008 10.3 mg/dL, albumin 4.9 grams/deciliter 08/12/2014 10.6 mg/dL, no albumin available with this blood test 01/15/2016 10.3 mg/dL, albumin 4.6 grams/deciliter 06/21/201910.5 mg/dL, albumin 4.9 grams/deciliter Trended alkaline phosphatase since 1996 range is 35 to 66 units/liter Her trended albumin from [id number] range from 4.1-5.1 g per dL 08/29/2018 vitamin-D 12.9 ng/mL 07/29/2015 vitamin-D 23.3 ng/mL 10/07/2014 PTH level 53 pg/mL , calcium 9.7 mg/dL, albumin 4.6 grams/deciliter 08/06/2020 RIGHT KIDNEY: 11.3 x 5.3 x 6.4 cm (SAG x AP x TRV). Medullary nephrocalcinosis. 1.9 cm anechoic right upper pole simple cyst. There is a 6 mm echogenic, shadowing lower pole calculus and a 4 mm echogenic, shadowing upper pole calculus. Renal cortical thickness is normal. No hydronephrosis. LEFT KIDNEY: 11.8 x 5.6 x 5.4 cm (SAG x AP x TRV). 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 1.8 cm simple cyst of the upper pole. 2.2 cm simple cyst of the lower pole. There is a prominent extrarenal pelvis but no calyceal dilation to suggest hydronephrosis. 5 mm echogenic mid renal calculus and a 3 mm echogenic, shadowing lower pole calculus. Date of Service: 12/24/20 US THYROID Right Thyroid Lobe: 5.0 x 1.2 x 1.3 cm, volume 4.1 mL. Previously 5.0 x 1.5 x 1.2 cm, volume 4.5 mL. Parenchyma: The gland echotexture is homogeneous. Thyroid vascularity is normal. Left Thyroid Lobe: 5.0 x 1.1 x 1.4 cm, volume 4.1 mL. Previously 5.1 x 0.9 x 1.2 cm, volume 3.0 mL. Parenchyma: The gland echotexture is homogeneous. Thyroid vascularity is normal. Isthmus: 0.18 cm in maximum AP dimension. Previously 0.16 cm. Estimated total number of nodules greater than or equal to 1 cm: 0. Geology Technician nodules are described as follows: No focal thyroid nodule is seen. No parathyroid adenoma is identified. NODES: No lymphadenopathy is seen in the tissue surrounding the thyroid gland. Date of Service: 01/13/21 BONE DENSITOMETRY FINDINGS: AP SPINE L1-L4: BMD 1.063 g/cm2, T-score -1.0, Z-score -1.0, Z-score within expected range for age. LEFT FEMUR, NECK: BMD 0.800 g/cm2, T-score -1.7, Z-score -1.2, Z-score within expected range for age. LEFT FEMUR, TOTAL: BMD 0.861 g/cm2, T-score -1.2, Z-score -0.9, Z-score within expected range for age. LEFT FOREARM RADIUS 33%: BMD 0.726 g/cm2, T-score -1.7, Z-score -1.7, Z-score within expected range for age. Laboratory Tests 12/12/19 07/27/20 09/23/20 07:40 09:48 08:58 Creatinine Estimated GFR Calcium Ionized Calcium Phosphorus Magnesium Alkaline Phosphatase Alk Phos Bone Specific Albumin 25-OH Vitamin D Total 1,25 Dihydroxy Vit D 25-Hydroxy Vitamin D2 <4 1,25 Dihydroxy Vit D2 25-Hydroxy Vitamin D3 14 1,25 Dihydroxy Vit D3 TSH PTH Intact 77 H 68 H Calcium (PTH Intact) Ur 24 Hour Volume Ur Creatinine mg/dL Ur Creatinine 24 Hour Ur Calcium 24 Hr Calcium/Creat 24 Hr 11/26/20 12/15/20 12/15/20 14:07 10:53 10:53 Creatinine 0.74 Estimated GFR > 60 Calcium 10.5 H Ionized Calcium 5.4 Phosphorus 2.7 Magnesium 2.1 Alkaline Phosphatase 57 Alk Phos Bone Specific Albumin 4.8 25-OH Vitamin D Total 14.7 1,25 Dihydroxy Vit D 25-Hydroxy Vitamin D2 1,25 Dihydroxy Vit D2 25-Hydroxy Vitamin D3 1,25 Dihydroxy Vit D3 TSH 1.26 PTH Intact Calcium (PTH Intact) Ur 24 Hour Volume Ur Creatinine mg/dL Ur Creatinine 24 Hour Ur Calcium 24 Hr Calcium/Creat 24 Hr 12/15/20 12/17/20 12/17/20 10:53 10:35 10:35 Creatinine Estimated GFR Calcium Ionized Calcium Phosphorus Magnesium Alkaline Phosphatase Alk Phos Bone Specific 7.9 Albumin 25-OH Vitamin D Total 1,25 Dihydroxy Vit D 76 H 25-Hydroxy Vitamin D2 1,25 Dihydroxy Vit D2 <8 25-Hydroxy Vitamin D3 1,25 Dihydroxy Vit D3 76 TSH PTH Intact 100 H Calcium (PTH Intact) 10.3 H Ur 24 Hour Volume 1075 Ur Creatinine mg/dL 63.96 Ur Creatinine 24 Hour 0.68 Ur Calcium 24 Hr 194 Calcium/Creat 24 Hr 286 H Laboratory Tests 08/29/18 10/15/18 04/01/19 11:05 08:45 08:50 Creatinine Calcium 9.9 9.7 10.1 Albumin 25-OH Vitamin D Total 25-Hydroxy Vitamin D2 25-Hydroxy Vitamin D3 TSH PTH Intact Calcium (PTH Intact) 06/21/19 12/12/19 12/12/19 09:10 07:40 07:40 Creatinine Calcium 10.5 H 9.5 D 9.7 Albumin 25-OH Vitamin D Total 25-Hydroxy Vitamin D2 25-Hydroxy Vitamin D3 TSH PTH Intact 77 H Calcium (PTH Intact) 07/27/20 07/27/20 09/23/20 09:48 09:48 08:58 Creatinine 0.73 Calcium 9.9 10.3 H Albumin 4.5 25-OH Vitamin D Total 25-Hydroxy Vitamin D2 25-Hydroxy Vitamin D3 TSH PTH Intact 68 H Calcium (PTH Intact) 10.1 09/23/20 11/26/20 08:58 14:07 Creatinine Calcium Albumin 25-OH Vitamin D Total 14 L 25-Hydroxy Vitamin D2 <4 25-Hydroxy Vitamin D3 14 TSH 1.26 PTH Intact Calcium (PTH Intact) She is status post parathyroidectomy with removal of [address] Bautista for [facility] Medical History (Updated 03/30/24 @ 08:53 by Katie Shay MD) Hyperparathyroidism Shingles Shortness of breath Pain of right scapula Dyslipidemia Insomnia Anemia Seizures Surgical History Hx of parathyroidectomy Hx of colonoscopy History of tumor History of tonsillectomy Family History Father High cholesterol Mother Acute Crohn's disease Maternal Aunt Breast cancer Maternal Uncle Cancer Social History Housing: House Alcohol intake: never Patient Tobacco Use Status: Former Tobacco user Tobacco use type: Cigarette e-Cigarette/Vaping Use: Never Used Second Hand Smoke Exposure: No service: No Current occupational status: unemployed Cognitive needs: No Hearing needs: No Vision needs: Yes Female Reproductive History Menstrual Age of Menarche: 15 Physical Exam Vital Signs: BMI result Body Mass Index 23.7 Assessment & Plan Assessment & Plan (1) Hypercalcemia: Code(s): E83.52 - Hypercalcemia Category: Medical Plan: Management as per hyperparathyroidism below (2) Hyperparathyroidism: Code(s): E21.3 - Hyperparathyroidism, unspecified Category: Medical Plan: This is a 46-year-old white female with a history of elevated PTH with intermittent elevated calcium and nephrolithiasis secondary to primary hyperparathyroidism status post parathyroidectomy Plan is to recheck calcium and PTH at [facility] ([facility]). Assuming above are normal, patient returned to the care of her primary care provider back to endocrinology as needed Orders: Orders Calcium Today E83.52 - Hypercalcemia Parathyroid Hormone Intact Today E83.52 - Hypercalcemia Coding Level of Care Code Est Pt Level 3 (28093) Diagnoses Hypercalcemia E83.52 Hyperparathyroidism E21.3
[2024-04-03 14:19] VITALS: BP 110/70; PULSE 72; BMI 23.7
== END 2024-04-03 14:34 | disposition home or self-care (01) ==
PROVIDERS: PCP Internal Medicine; Visit Provider Internal Medicine Endocrinology, Diabetes & Metabolism
DX: E83.52 Hypercalcemia (principal); E21.3 Hyperparathyroidism, unspecified
CPT/HCPCS: 99213

== ENCOUNTER → 2024-04-03 14:12 | Outpatient (BNVA) | payer OTHER, MEDICARE, SELFPAY | PROVIDERS: PCP Internal Medicine; Visit Provider Internal Medicine Endocrinology, Diabetes & Metabolism ==

== ENCOUNTER 2024-04-09 08:54 | Outpatient (REF) | payer OTHER, MEDICARE, SELFPAY ==
[2024-04-09 10:57] LABS: Alanine Aminotransferase 12 U/L (0-31); Albumin Level 4.4 g/dL (3.5-5.0); Alkaline Phosphatase 40 U/L (39-117); Anion Gap 12 (12-20); Aspartate Amino Transferase 14 U/L (5-31); Bilirubin Total 0.3 mg/dL (0.0-1.0); Blood Urea Nitrogen 8 mg/dL (9-16); Calcium 9.4 mg/dL (8.4-10.2); Carbon Dioxide 26 mmol/L (22-29); Chloride 108 mmol/L (96-108); Cholesterol 247 mg/dL (<200); Estimated Glomerular Filt Rate > 60; Glucose Fasting 86 mg/dL (60-99); HDL Cholesterol 51 mg/dL (>40); LDL Cholesterol Calculated 172 mg/dL (<100); Potassium 4.2 mmol/L (3.3-5.1); Sodium 142 mmol/L (135-145); Total Protein 7.3 g/dL (6.5-8.0); Triglycerides 122 mg/dL (<150)
== END 2024-04-09 08:55 | disposition home or self-care (01) ==
LOC: HO.LAB 08:54
PROVIDERS: Absent Provider Internal Medicine Endocrinology, Diabetes & Metabolism; PCP Internal Medicine; Visit Provider Internal Medicine
DX: Z00.00 Encounter for general adult medical examination without abnormal findings (principal); E83.52 Hypercalcemia
CPT/HCPCS: 36415; 80053; 80061; 83970

== ENCOUNTER 2024-04-11 12:19 | Outpatient (AMB) | payer OTHER, MEDICARE, SELFPAY ==
--- NOTE | 2024-04-11 12:31 | A.OFFVIS_ITS ---
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 No complaints. Last Pap/HPV was negative in 12/25 Last Mammogram was BI-RADS 1 in 12/28 Last colonoscopy was in 08/29, the recommendation was to repeat in 3-4 years [facility] Medical History Hyperparathyroidism Shingles Shortness of breath Pain of right scapula Dyslipidemia Insomnia Anemia Seizures Surgical History Hx of parathyroidectomy Hx of colonoscopy History of tumor History of tonsillectomy Family History Father High cholesterol Mother Acute Crohn's disease Maternal Aunt Breast cancer Maternal Uncle Cancer Social History Housing: House Alcohol intake: never Patient Tobacco Use Status: Former Tobacco user Tobacco use type: Cigarette e-Cigarette/Vaping Use: Never Used Second Hand Smoke Exposure: No service: No Current occupational status: unemployed Cognitive needs: No Hearing needs: No Vision needs: Yes Female Reproductive History Menstrual Age of Menarche: 15 Date of last pap smear: 12/16/20 Date of Mammogram: 12/06/23 Review of Systems Const All systems reviewed & are unremarkable except as noted in HPI and below Card Reports as per HPI Resp Reports as per HPI GI Reports as per HPI and Reports no additional complaints Reports as per HPI Physical Exam Vital Signs: Last Vital Signs BP 116/72 04/11/24 12:32 BMI result Body Mass Index 23.4 Const General: cooperative, healthy appearing and comfortable Chest Chest palpation & inspection: normal inspection of the chest and normal pa lpation of entire chest wall Breast/axilla inspection: normal inspection of the breasts and normal inspection of the axillae Breast/axilla palpation: normal palpation of the breasts, normal palpation of the axillae and no axillary lymphadenopathy Resp Effort & Inspection: normal respiratory effort Auscultation: clear to auscultation bilaterally Percussion: percussion normal Cardio Palpation: normal PMI Rate: regular rate Rhythm: regular rhythm Heart sounds: no murmurs and no rubs Peripheral pulses: Peripheral pulses 2+ throughout GI Inspection: Yes normal to inspection Palpation (GI): Soft to palpation, nontender, no guarding, not rigid and No hepatosplenomegaly present Percussion: Yes normal to percussion Auscultation: normal bowel sounds Rectal Exam - Female: deferred General: Yes bladder normal to palpation External Female Exam: No lesion Speculum Exam - Vagina: normal appearance of the vagina, normal palpation, normal vaginal discharge and not erythematous Speculum Exam - Cervix: normal appearance of the cervix, normal palpation and Other cervical findings present (IUD string in place) Bimanual exam- vagina & uterus: normal bimanual exam, normal palpation, uterine size normal, bladder normal to palpation, consistency normal and normal palpation Bimanual Exam- Adnexa, other: normal adnexae, no masses and no tenderness Assessment & Plan Assessment & Plan (1) Well woman exam: Code(s): Z01.419 - Encounter for gynecological examination (general) (routine) without abnormal findings Category: Medical Plan: Cotesting not indicated this year. Instructions given to patient to schedule next screening Mammogram in 12/29. Counseled the patient about the recommended dietary allowance of 1000 mg of Calcium & 600 IU of vitamin D. The patient was instructed to perform monthly self-breast exams and to schedule an annual exam in a year; All questions answered and the patient verbalized understanding. Instructed the patient to schedule annual exam in a year Coding Level of Care Code Est Pt Prev Care 40-64y(07313) Diagnoses Well woman exam Z01.419
[2024-04-11 12:32] VITALS: BP 116/72; BMI 23.4
== END 2024-04-11 13:00 | disposition home or self-care (01) ==
PROVIDERS: PCP Internal Medicine; Visit Provider Obstetrics & Gynecology
DX: Z01.419 Encounter for gynecological examination (general) (routine) without abnormal findings (principal)
CPT/HCPCS: 99396

== ENCOUNTER → 2024-04-11 12:19 | Outpatient (BNVA) | payer OTHER, MEDICARE, SELFPAY | PROVIDERS: PCP Internal Medicine; Visit Provider Obstetrics & Gynecology ==

== ENCOUNTER 2024-05-23 14:46 | Outpatient (REF) | payer OTHER, MEDICARE, SELFPAY ==
--- NOTE | ~2024-05-23 | US_ITS ---
EXAMINATION: US PELVIS CLINICAL INFORMATION: Pelvic and perineal pain. LMP started 05/21/2024. COMPARISON: Most recent pelvic ultrasound dated 08/05/2022. TECHNIQUE: Ultrasound of the pelvis is performed using both transabdominal and transvaginal transducers along with Doppler. Transvaginal imaging is performed due to inadequate visualization transabdominally. FINDINGS: Uterus: The uterus is introverted and retroflexed and measures 9.7 x 4.4 x 5.7 cm. Nabothian cysts are identified. No significant endometrial thickening. IUD located within the endometrium. Trace endometrial fluid. The uterus is smooth in contour and has normal myometrial echogenicity. No visible fibroid. Adnexa: Both ovaries are visualized. There is normal color flow to the adnexa. There is no ovarian torsion. There is no pelvic ascites or fluid collection. Within the left ovary there is a new probable dominant follicle measuring up to 2.7 cm in greatest dimension. Tiny adjacent echogenicity, which is favored to represent artifact rather than a tiny calcification. There is adjacent Doppler detectable vascular flow. Right ovary measures 2 x 1.5 x 1.5 cm. Volume of 2.4 mL. Left ovary measures 3 x 2.5 x 2.4 cm. Volume of 9.4 mL. No pelvic free fluid. US/US pelvic and transvaginal IMPRESSION: 1. IUD located within the endometrium. Trace endometrial fluid. 2. New left ovarian probable dominant follicle measuring up to 2.7 cm. 3. Sonographically unremarkable right ovary. Electronically signed by: Joe Chen MD 05/24/2024 09:05 AM EDT
== END 2024-05-23 14:47 | disposition home or self-care (01) ==
LOC: HO.US 14:46
PROVIDERS: PCP Internal Medicine; Visit Provider Obstetrics & Gynecology
DX: R10.2 Pelvic and perineal pain (principal)
CPT/HCPCS: 76830; 76856; 81002; 81025

== ENCOUNTER 2024-05-23 15:48 | Outpatient (AMB) | payer OTHER, MEDICARE, SELFPAY ==
[2024-05-23 16:37] VITALS: BMI 23.4
--- NOTE | 2024-05-23 16:37 | MHC.OFFVIS ---
Vital Signs 05/23/24 16:37 Height 5 ft 2 in Weight 127 lb 13.89 oz BMI 23.4 Intake Visit Reasons: US follow up per Allergies No Known Allergies [No Known Allergies*] Allergy (Verified 04/11/24 12:45) HPI Comments Details: Presenting complaining of left lower quadrant pain a few days' duration no associated vaginal discharge, urinary or GI symptoms no fever or chills no nausea or vomiting. PFSH Medical History Hyperparathyroidism Shingles Shortness of breath Pain of right scapula Dyslipidemia Insomnia Anemia Seizures Surgical History Hx of parathyroidectomy Hx of colonoscopy History of tumor History of tonsillectomy Family History Father High cholesterol Mother Acute Crohn's disease Maternal Aunt Breast cancer Maternal Uncle Cancer Social History Housing: House Alcohol intake: never Patient Tobacco Use Status: Former Tobacco user Tobacco use type: Cigarette e-Cigarette/Vaping Use: Never Used Second Hand Smoke Exposure: No service: No Current occupational status: unemployed Cognitive needs: No Hearing needs: No Vision needs: Yes Female Reproductive History Menstrual Age of Menarche: 15 Review of Systems Const All systems reviewed & are unremarkable except as noted in HPI and below Physical Exam Vital Signs: BMI result Body Mass Index 23.4 GI Palpation (GI): Soft to palpation and nontender General: Yes no CVA tenderness External Female Exam: normal external appearance and normal appearance of the urethra Speculum Exam - Vagina: normal appearance of the vagina, normal palpation, no lesions and no masses Speculum Exam - Cervix: normal appearance of the cervix, normal palpation, no lesions, no masses, nontender and Other cervical findings present (IUD string in place) Bimanual exam- vagina & uterus: normal bimanual exam, normal palpation, uterine size normal, normal palpation, uterine shape normal, No Cervical tenderness present and non-tender Bimanual Exam- Adnexa, other: normal adnexae Back/Spine/Pelvis Back: no CVA tenderness Assessment & Plan Assessment & Plan (1) Pelvic pain: Code(s): R10.2 - Pelvic and perineal pain Category: Medical Plan: UPT done in the office was negative. Urine culture sent. Discussed with the patient the results the unofficial read of the ultrasound showing IUD in Situ and left colpo luteum cyst measuring 2.1 x 1.7 x 2 cm calcification normal arterial and venous Doppler flow GC/CT taken Instructions given the patient to schedule a follow-up appointment in 1-2 weeks and to call or go to emergency room in case of fever above 100.4, nausea or vomiting, worsening or persistent of her pelvic pain All questions answered, the patient verbalized understanding Coding Level of Care Code Est Pt Level 3 (10510) Diagnoses Pelvic pain R10.2
== END 2024-05-23 16:52 | disposition home or self-care (01) ==
LOC: HO.HWS 15:48
PROVIDERS: PCP Internal Medicine; Visit Provider Obstetrics & Gynecology
DX: R10.2 Pelvic and perineal pain (principal); Z32.02 Encounter for pregnancy test, result negative; R31.29 Other microscopic hematuria
CPT/HCPCS: 99213

== ENCOUNTER 2024-05-23 16:45 | Outpatient (REF) | payer OTHER, MEDICARE, SELFPAY ==
[2024-05-24 03:48] LABS: CT PCR NOT DETECTED (Not Detect.); NG PCR NOT DETECTED (Not Detect.)
== END 2024-05-23 16:46 | disposition home or self-care (01) ==
LOC: HO.LNP 16:45
PROVIDERS: Visit Provider Obstetrics & Gynecology
DX: R31.29 Other microscopic hematuria (principal); R10.2 Pelvic and perineal pain; N93.9 Abnormal uterine and vaginal bleeding, unspecified
CPT/HCPCS: 87086; 87491; 87591

== ENCOUNTER 2024-06-05 11:01 | Outpatient (AMB) | payer OTHER, MEDICARE, SELFPAY ==
[2024-06-05 11:01] VITALS: BP 120/82; BMI 23.2
--- NOTE | 2024-06-05 11:01 | MHC.OFFVIS ---
Vital Signs 06/05/24 11:01 Height 5 ft 2 in Weight 127 lb BMI 23.2 BP 120/82 Blood Pressure Location Lt brachial Position Sitting Intake Visit Reasons: U/S results Allergies No Known Allergies [No Known Allergies*] Allergy (Verified 06/05/24 11:04) HPI Comments Details: Presenting for follow-up regarding her pelvic pain. The patient is doing well. The following workup was done so far: GC/CT negative. Last visit urine test was negative. Last visit urine culture was negative Pelvic ultrasound showed the following: IMPRESSION: 1. IUD located within the endometrium. Trace endometrial fluid. 2. New left ovarian probable dominant follicle measuring up to 2.7 cm. 3. Sonographically unremarkable right ovary. [facility] Medical History Hyperparathyroidism Shingles Shortness of breath Pain of right scapula Dyslipidemia Insomnia Anemia Seizures Surgical History Hx of parathyroidectomy Hx of colonoscopy History of tumor History of tonsillectomy Family History Father High cholesterol Mother Acute Crohn's disease Maternal Aunt Breast cancer Maternal Uncle Cancer Social History Housing: House Alcohol intake: never Patient Tobacco Use Status: Former Tobacco user Tobacco use type: Cigarette e-Cigarette/Vaping Use: Never Used Second Hand Smoke Exposure: No service: No Current occupational status: unemployed Cognitive needs: No Hearing needs: No Vision needs: Yes Female Reproductive History Menstrual Age of Menarche: 15 Review of Systems Const All systems reviewed & are unremarkable except as noted in HPI and below Reports as per HPI and Reports no additional complaints GI Reports no additional complaints Reports no additional complaints Physical Exam Vital Signs: Last Vital Signs BP 120/82 06/05/24 11:01 BMI result Body Mass Index 23.2 Assessment & Plan Assessment & Plan (1) Pelvic pain: Code(s): R10.2 - Pelvic and perineal pain Category: Medical Plan: Discussed with the patient the results of the workup done including negative GC/chlamydia, urine dip, urine test and pelvic ultrasound. Differential diagnosis of sandblast or shotblast equipment tender causes that have not be ruled out yet include but not limited to endometriosis, pelvic adhesions , or others. Recommended for the patient to see her PCP for further workup for non sandblast or shotblast equipment tender causes; if the all the results are negative and the patient's pelvic pain is persistent, instructions given to patient to call back for further testing. Meanwhile, instructions were given the patient to go to emergency room or call in case of fever above 100.4, heavy vaginal bleeding, persistence or worsening of her pelvic pain. All questions answered, the patient verbalized understanding. Coding Level of Care Code Est Pt Level 3 (78006) Diagnoses Pelvic pain R10.2
== END 2024-06-05 11:16 | disposition home or self-care (01) ==
LOC: HO.HWS 11:01
PROVIDERS: PCP Internal Medicine; Visit Provider Obstetrics & Gynecology
DX: R10.2 Pelvic and perineal pain (principal)
CPT/HCPCS: 99213

== ENCOUNTER → 2024-06-05 11:01 | Outpatient (BNVA) | payer OTHER, MEDICARE, SELFPAY | PROVIDERS: PCP Internal Medicine; Visit Provider Obstetrics & Gynecology ==

== ENCOUNTER 2024-08-08 11:06 | Outpatient (AMB) | payer OTHER, MEDICARE, SELFPAY ==
[2024-08-08 11:15] VITALS: BP 120/68; PULSE 80; O2SAT 98; BMI 23.6
--- NOTE | 2024-08-08 11:15 | A.OFFPC_ITS ---
Vital Signs 08/08/24 11:15 Height 5 ft 2 in Weight 129 lb 4 oz BMI 23.6 BP 120/68 Blood Pressure Location Lt brachial Position Sitting Pulse 80 Pulse Source Pulse Oximeter Pulse Oximetry (%) 98 Oxygen Delivery Method Room Air Intake Visit Reasons: Med Review Allergies No Known Allergies [No Known Allergies*] Allergy (Verified 08/08/24 11:24) Medication List - Last Reconciled 08/08/24 by Katie Shay MD gabapentin 300 mg PO BEDTIME 90 days lamotrigine 100 mg PO TID 90 days lamotrigine mg PO levonorgestrel (Mirena) intrauterine Tobacco use date assessed: 03/28/24 Dental Screening Dental Screen Date: 03/28/24 HPI HPI Comments History of Present Illness Details The patient is a 49-year-old female presenting with lower extremity numbness in left leg. She reports an episode that occurred at night when attempting to get up to use the restroom. Her left leg went completely numb, impairing her ability to move it. She lay down for a time before attempting to get up again, which eventually restored sensation by morning. This was an isolated incident with no recurrence. The patient has a history of seizures, managed with Lamotrigine 100 mg three times a day, and experiences sleep disturbances, for which she takes Gabapentin 300 mg at bedtime. She also reports chronic constipation, experiencing difficulty with bowel movements for 1-2 days, often requiring significant effort to pass hard stools or small anup. She had a colonoscopy performed last year, which returned without notable findings. The patient denies experiencing any back pain associated with the numbness incident, although she recently twisted her lower back during activity. She follows neurologic care for her seizures. [facility] Medical History Hyperparathyroidism Shingles Shortness of breath Pain of right scapula Dyslipidemia Insomnia Anemia Seizures Surgical History Hx of parathyroidectomy Hx of colonoscopy History of tumor History of tonsillectomy Family History Father High cholesterol Mother Acute Crohn's disease Maternal Aunt Breast cancer Maternal Uncle Cancer Social History Housing: House Alcohol intake: never Patient Tobacco Use Status: Former Tobacco user Tobacco use type: Cigarette e-Cigarette/Vaping Use: Never Used Second Hand Smoke Exposure: No service: No Current occupational status: unemployed Cognitive needs: No Hearing needs: No Vision needs: Yes Female Reproductive History Menstrual Age of Menarche: 15 Questionnaire PHQ-9 Over the last 2 weeks, how often have you been bothered by any of the following problems? 1. Little interest or pleasure in doing things: not at all 2. Feeling down, depressed, or hopeless: not at all 3. Trouble falling or staying asleep, or sleeping too much: not at all 4. Feeling tired or having little energy: not at all 5. Poor appetite or overeating: not at all 6. Feeling bad about yourself - or that you are a failure or have let yourself or your family down: not at all 7. Trouble concentrating on things, such as reading the newspaper or watching television: not at all 8. Moving or speaking so slowly that other people could have noticed. Or the opposite - being so fidgety or restless that you have been moving around a lot more than usual: not at all 9. Thoughts that you would be better off or of hurting yourself in some way: not at all Total score: 0 Depression Screening Interpretation: Negative Depression Screening Done: Yes 38003 - PHQ-9 Billing: Yes Source: Developed by Drs. Nick Wen, Lauren Miller, Milton Palomino and colleagues, with an educational brady from [employer]. Thrive Questionnaire Date Thrive assessed: 08/08/24 I am a: Patient What is your living situation today?: I have a steady place to live Within the past 12 months, did the food you bought not last and you didn't have the money to get more?: Never true Within the past 12 months, did you worry whether your food would run out before you got money to buy more?: Never true Do you have trouble paying for medicines?: No Do you have trouble getting transportation to medical appointments?: No Do you have trouble paying your heating and electricity bill?: No Do you have trouble taking care of your child, family member or friend?: No Do you have trouble with day-to-day activities such as bathing, preparing meals, shopping, managing finances, etc.?: No Are you currently unemployed and looking for a job?: No Are you interested in more education?: No Please select the resources that you would like help with: None Currently or been in a relationship where the following occur: No concerns reported THRIVE Score: 0 AUDIT C Alcohol Use Questionnaire (AUDIT-C) 1. How often do you have a drink containing alcohol?: Never 3. How often do you have six or more drinks on one occasion?: Never Total Score: 0 Score Reviewed/Action Taken: No DESTINY-7 AMB Questionnaire DESTINY-7 Date DESTINY - 7 assessed: 08/08/24 Feeling nervous, anxious, or on edge: 0 = Not at all Not being able to stop or control worryin = Not at all Worrying too much about different things: 0 = Not at all Trouble relaxin = Not at all Being so restless that it is hard to sit still: 0 = Not at all Becoming easily annoyed or irritable: 0 = Not at all Feeling afraid as if something awful might happen: 0 = Not at all Total DESTINY-7 score (0-4 normal; 5-9 mild; 10-14 moderate; 15-21 severe): 0 Source: Developed by Drs. Nick Wen, Lauren Miller, Milton Palomino and colleagues, with an educational brady from [employer]. DESTINY-7 Assessment Billing DESTINY-7 Assessment Tool: DESTINY-7 Assessment 64428 Review of Systems Const Details: - Neurological: Denies recurrent leg numbness. - Gastrointestinal: Reports chronic constipation. Physical exam (Primary Care) Vital Signs: Last Vital Signs Pulse 80 08/08/24 11:15 BP 120/68 08/08/24 11:15 Pulse Ox 98 08/08/24 11:15 Oxygen Delivery Method Room Air 08/08/24 11:15 BMI result Body Mass Index 23.6 Tobacco/Smoking Status: Tobacco use Status Tobacco use date assessed 03/28/24 08/08/24 11:21 Patient Tobacco Use Status Former Tobacco user 08/08/24 11:21 Tobacco use type Cigarette 08/08/24 11:21 e-Cigarette/Vaping Use Never Used 08/08/24 11:21 PHQ-9: PHQ-9 Score PHQ-9: Total score 0 08/08/24 11:21 Depression Screening Interpretation: Negative Thrive Assessment: Date of Thrive Assessment Date Thrive assessed 08/08/24 08/08/24 11:21 Currently or been in a relationship where the following occur: No concerns reported Const Other: General: No confusion Respiratory: Normal respiratory effort, clear to auscultation bilaterally Cardiovascular: No jugular venous distension, regular rate, regular rhythm, S1 normal heart sound present and S2 normal heart sound present Neurology: Patient oriented x3, no focal motor deficits and No confusion, positive straight leg test on the left Extremities: Full ROM Psychology: Grossly normal Office Procedures Flu Questionnaire Does the patient have a severe egg allergy?: No Immunizations Fluarix Triv [id number] (PF) 45 mcg (15 mcg x 3)/0.5 mL IM syringe Performing Provider: Katie Shay MD [facility] [place] [facility] Documented (not given) by: JUANITO Rocha on 08/08/24 11:22 Reason Not Given: Patient Refused Coding Level of Care Code Est Pt Level 4 (90136) Complex EM visit Add On G2211 Diagnoses Numbness in left leg R20.0 Seizures R56.9 Chronic idiopathic constipation K59.04 Insomnia G47.00 Additional Codes DESTINY-7 Assessment Billing - DESTINY-7 Assessment Tool: DESTINY-7 Assessment 31029 ([id number]) PHQ-9 - 73557 - PHQ-9 Billing: Yes ([id number]) Time Spent (min) 21 Assessment & Plan Assessment & Plan (1) Numbness in left leg: Code(s): R20.0 - Anesthesia of skin Category: Medical (2) Seizures: Code(s): R56.9 - Unspecified convulsions Category: Medical (3) Chronic idiopathic constipation: Code(s): K59.04 - Chronic idiopathic constipation Category: Medical (4) Insomnia: Code(s): G47.00 - Insomnia, unspecified Category: Medical Plan - Continue Gabapentin for sleep disturbance, beneficial for neuropathic pain. - Observation for suspected sciatica related to recent back twist. - Initiate medication for constipation to be used as needed. - Schedule follow-up to monitor symptom progression. - Maintain current neurology follow-up for seizure management. Patient was informed and verbally consented to the use of an ambient scribe for clinic note documentation during this visit. I reviewed the patient's leg numbness, likely linked to a recent twisting of the lower back, potentially indicating sciatica. Gabapentin may aid in addressing this neuropathic pain. I advised using a medication as needed for constipation, warning that it may cause diarrhea. I reaffirmed the importance of continuing her neurology care for seizures and suggested a follow-up visit to assess any changes in symptoms, particularly if the numbness reoccurs. The patient has an appointment scheduled for April, which we agreed to keep to evaluate her physical condition. Orders: Orders Influenza [id number] Immunization Today Z23 - Encounter for immunization Medications: New docusate calcium 240 mg PO BEDTIME 90 days PRN 90 caps 0RF constipation Patient Instructions: - Continue Gabapentin and Lamotrigine as prescribed. - Use prescribed medication for constipation as needed. - Report any recurrence of leg numbness or worsening back pain. - Maintain scheduled appointment in April. - Reach out via portal message if constipation worsens.
== END 2024-08-08 11:36 | disposition home or self-care (01) ==
PROVIDERS: PCP Internal Medicine; Visit Provider Internal Medicine
DX: R20.0 Anesthesia of skin (principal); R56.9 Unspecified convulsions; K59.04 Chronic idiopathic constipation; G47.00 Insomnia, unspecified; Z23 Encounter for immunization

== ENCOUNTER → 2024-08-08 11:06 | Outpatient (BNVA) | payer OTHER, MEDICARE, SELFPAY | PROVIDERS: PCP Internal Medicine; Visit Provider Internal Medicine | DX: R20.0 Anesthesia of skin (principal); R56.9 Unspecified convulsions; K59.04 Chronic idiopathic constipation; G47.00 Insomnia, unspecified; Z79.899 Other long term (current) drug therapy; Z28.21 Immunization not carried out because of patient refusal | CPT/HCPCS: 90471; 96127 ==

== ENCOUNTER 2024-08-12 14:46 | Outpatient (AMB) | payer OTHER, MEDICARE, SELFPAY ==
--- NOTE | 2024-08-12 14:51 | A.OFFPC_ITS ---
Vital Signs 08/12/24 14:52 Height 5 ft 2 in Weight 128 lb 4 oz BMI 23.5 BP 110/68 Blood Pressure Location Lt brachial Position Sitting Pulse 68 Pulse Source Pulse Oximeter Pulse Oximetry (%) 96 Oxygen Delivery Method Room Air Intake Visit Reasons: back pain Intake Note: Patient is here to follow up on Back pain. Light Industrial Supervisor Required: No Coding Compliance Specialist: Not Required per policy Accompanied by: Self / Same As Patient Allergies No Known Allergies [No Known Allergies*] Allergy (Verified 08/12/24 14:52) Medication List - Last Reconciled 08/12/24 by Diana Ken PA-C docusate calcium 240 mg PO BEDTIME PRN 90 days gabapentin 300 mg PO BEDTIME 90 days lactulose 10 grams (15 mL) PO BEDTIME PRN 30 days lamotrigine 100 mg PO TID 90 days lamotrigine mg PO levonorgestrel (Mirena) intrauterine Tobacco use date assessed: 08/12/24 Dental Screening Dental Screen Date: 08/12/24 Did you have a dental visit in the last 12 months?: No Did you have a dental problem in the last 6 months where you did not have access to dental care?: No Was dental information given to patient?: Patient has dentist HPI back pain HPI Details 49-year-old female with past medical his tory of seizures, insomnia, dyslipidemia, abnormal uterine bleeding and constipation last seen 08/08/2024 coming in for acute problem. Patient tells us today she was putting away Blu decorations and lifting heavy boxes in the following day had low back pain. She was seen in the office by Dr. Biggs diagnosed with muscle strain. She has been having worsening back pain over the last several days and feels the pain is becoming more intense. She has been using a heating pad with mild relief but back pain we will return. She denies feeling a pop or pulling sensation in the back while moving boxes. The pain is positional and resolves completely while lying flat she has no difficulty sleeping at night. [facility] Medical History Hyperparathyroidism Shingles Shortness of breath Pain of right scapula Dyslipidemia Insomnia Anemia Seizures Surgical History Hx of parathyroidectomy Hx of colonoscopy History of tumor History of tonsillectomy Family History Father High cholesterol Mother Acute Crohn's disease Maternal Aunt Breast cancer Maternal Uncle Cancer Social History Housing: House Alcohol intake: never Patient Tobacco Use Status: Former Tobacco user Tobacco use type: Cigarette e-Cigarette/Vaping Use: Never Used Second Hand Smoke Exposure: No service: No Current occupational status: unemployed Cognitive needs: No Hearing needs: No Vision needs: Yes Female Reproductive History Menstrual Age of Menarche: 15 Questionnaire Thrive Questionnaire Date Thrive assessed: 08/08/24 DESTINY-7 AMB Questionnaire DESTINY-7 Date DESTINY - 7 assessed: 08/08/24 Source: Developed by Drs. Nick Wen, Lauren Miller, Milton Palomino and colleagues, with an educational brady from [employer]. Review of Systems Const Denies body aches, Denies chills, Denies fever(s) and Denies poor appetite Card Denies chest pain, Denies syncope, Denies edema, Denies irregular heart rhythm, Denies lightheadedness and Denies dyspnea Resp Denies cough and Denies dyspnea GI Denies abdominal pain, Denies constipation, Denies diarrhea, Denies nausea and Denies vomiting Reports no additional complaints Musc Reports no additional complaints and Denies abnormal gait Skin/Breast Reports system reviewed and no additional complaints, except as documented Neuro Denies abnormal gait and Denies syncope Psych Reports no additional complaints Physical exam (Primary Care) BMI result Body Mass Index 23.5 Tobacco/Smoking Status: Tobacco use Status Tobacco use date assessed 03/28/24 08/08/24 11:21 Patient Tobacco Use Status Former Tobacco user 08/08/24 11:21 Tobacco use type Cigarette 08/08/24 11:21 e-Cigarette/Vaping Use Never Used 08/08/24 11:21 Thrive Assessment: Date of Thrive Assessment Date Thrive assessed 08/08/24 08/08/24 11:21 Const General: cooperative, healthy appearing, comfortable and no acute distress Orientation/consciousness: patient oriented x3 HENMT Head: Yes normocephalic Ears: hearing grossly normal bilaterally General nose exam: Normal external nose present Eyes General: appearance normal, both eyes and all related structures Conjunctivae: conjunctivae normal Neck Neck: Yes full ROM and Yes no lymphadenopathy Resp Effort & Inspection: normal respiratory effort Auscultation: clear to auscultation bilaterally, no crackles, no rales, no rhonchi and no wheezes Cardio Rate: regular rate Rhythm: regular rhythm Back/Spine/Pelvis Other: Pain to palpation over left lumbar paraspinal muscles. Negative straight leg raise test bilaterally. No tenderness to palpation over entirety of spine and no step-offs or deformities palpated Skin General skin exam: no rashes or lesions noted Neuro General: patient oriented x3 Gait exam (Neuro): Normal gait present Extrem General: Yes normal to inspection, Yes full ROM and No edema Psych Affect: normal affect Attitude: cooperative Insight: Good insight present (Psych) Judgement: Good judgement present (Psych) Coding Level of Care Code Est Pt Level 3 (46686) Diagnoses Low back pain M54.50 Assessment & Plan Assessment & Plan (1) Low back pain: Code(s): M54.50 - Low back pain, unspecified Category: Medical Plan: Pain to palpation over left lumbar paraspinal muscles no tenderness to palpation over lumbar spine. Negative straight leg raise. Patient complaining of worsening low back pain likely muscular in nature given history and presentation. Advised patient to continue using heating pad and we will prescribe lidocaine patch to be used as needed. Patient declining muscle relaxer at this time. Encouraged gentle stretching and reviewed has a do this safely. Advised patient to follow up if pain worsens or does not improve. Plan This note was constructed using voice recognition software. While every effort has been made to ensure accuracy and jig grinder, still areas may have been included sometimes these areas may affect the content or meeting of the given symptoms. Total time spent caring for the patient today was 20 minutes. This includes time spent before the visit reviewing the chart, time spent during the visit, and time spent after the visit and documentation. Medications: New lidocaine 5% leave on most painful area for up to 12 hrs 1 patch topical DAILY 30 ea 0RF
[2024-08-12 14:52] VITALS: BP 110/68; PULSE 68; O2SAT 96; BMI 23.5
== END 2024-08-12 15:21 | disposition home or self-care (01) ==
PROVIDERS: PCP Internal Medicine
DX: M54.50 Low back pain, unspecified (principal)

== ENCOUNTER 2024-12-11 13:53 | Outpatient (REF) | payer OTHER, MEDICARE, SELFPAY | END 2024-12-11 13:54 | disposition home or self-care (01) | LOC: HO.MAMMO 13:53 | PROVIDERS: PCP Internal Medicine; Visit Provider Internal Medicine | DX: Z12.31 Encounter for screening mammogram for malignant neoplasm of breast (principal) | CPT/HCPCS: 77063; 77067 ==

== ENCOUNTER → 2024-12-11 14:00 | Outpatient (BNV) | payer OTHER, MEDICARE, SELFPAY | PROVIDERS: PCP Internal Medicine; Visit Provider Internal Medicine | DX: Z12.31 Encounter for screening mammogram for malignant neoplasm of breast (principal) | CPT/HCPCS: 77063; 77067 ==

== ENCOUNTER 2025-04-09 14:27 | Outpatient (AMB) | payer BC, MEDICARE, SELFPAY ==
--- NOTE | 2025-04-09 14:31 | A.OFFPC_ITS ---
Vital Signs 04/09/25 14:33 Height 5 ft 2 in Weight 129 lb BMI 23.6 BP 104/60 Blood Pressure Location Lt brachial Position Sitting Pulse 67 Pulse Source Pulse Oximeter Pulse Oximetry (%) 94 Oxygen Delivery Method Room Air Intake Visit Reasons: annual exam Agriculture Instructor Required: No Accompanied by: Self / Same As Patient Allergies No Known Allergies (No Known Allergies*) Allergy (Verified 04/09/25 14:47) Medication List - Last Reconciled 04/09/25 by Katie Shay MD gabapentin 300 mg PO BEDTIME 90 days lamotrigine 100 mg PO TID 90 days lamotrigine mg PO Tobacco use date assessed: 04/09/25 Dental Screening Dental Screen Date: 04/09/25 Did you have a dental visit in the last 12 months?: No Did you have a dental problem in the last 6 months where you did not have access to dental care?: No Was dental information given to patient?: No HPI HPI Comments History of Present Illness Details The patient is a 49-year-old female presenting for a physical examination. She has a history of seizure disorder, which has been well controlled with medication following the surgical removal of a benign tumor. 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 Her next colonoscopy is scheduled for 2025. Her preventative care measures include a Tdap vaccination last administered in 2014 and a mammogram performed in December, which returned normal results. She also had a Pap smear in 2020, which was negative for HPV, and her gynecological biopsy was negative for cancer. [facility] Medical History Hyperparathyroidism Shingles Shortness of breath Pain of right scapula Dyslipidemia Insomnia Anemia Seizures Surgical History Hx of parathyroidectomy Hx of colonoscopy History of tumor History of tonsillectomy Family History Father High cholesterol Mother Acute Crohn's disease Maternal Aunt Breast cancer Maternal Uncle Cancer Social History Housing: House Alcohol intake: never Patient Tobacco Use Status: Former Tobacco user Tobacco use type: Cigarette e-Cigarette/Vaping Use: Never Used Second Hand Smoke Exposure: No service: No Current occupational status: unemployed Cognitive needs: No Hearing needs: No Vision needs: Yes Female Reproductive History Menstrual Age of Menarche: 15 Questionnaire PHQ-9 Over the last 2 weeks, how often have you been bothered by any of the following problems? 1. Little interest or pleasure in doing things: not at all 2. Feeling down, depressed, or hopeless: not at all 3. Trouble falling or staying asleep, or sleeping too much: not at all 4. Feeling tired or having little energy: not at all 5. Poor appetite or overeating: not at all 6. Feeling bad about yourself - or that you are a failure or have let yourself or your family down: not at all 7. Trouble concentrating on things, such as reading the newspaper or watching television: not at all 8. Moving or speaking so slowly that other people could have noticed. Or the opposite - being so fidgety or restless that you have been moving around a lot more than usual: not at all 9. Thoughts that you would be better off or of hurting yourself in some way: not at all Total score: 0 Depression Screening Interpretation: Negative Depression Screening Done: Yes 87463 - PHQ-9 Billing: Yes Source: Developed by Drs. Nick Wen, Lauren Miller, Milton Palomino and colleagues, with an educational brady from [employer]. Thrive Questionnaire Date Thrive assessed: 04/02/25 I am a: Patient What is your living situation today?: I have a steady place to live Within the past 12 months, did the food you bought not last and you didn't have the money to get more?: Never true Within the past 12 months, did you worry whether your food would run out before you got money to buy more?: Never true Do you have trouble paying for medicines?: No Do you have trouble getting transportation to medical appointments?: No Do you have trouble paying your heating and electricity bill?: No Do you have trouble taking care of your child, family member or friend?: No Do you have trouble with day-to-day activities such as bathing, preparing meals, shopping, managing finances, etc.?: No Are you currently unemployed and looking for a job?: No Are you interested in more education?: No Please select the resources that you would like help with: None Currently or been in a relationship where the following occur: No concerns reported THRIVE Score: 0 AUDIT C Alcohol Use Questionnaire (AUDIT-C) 1. How often do you have a drink containing alcohol?: Never Total Score: 0 Score Reviewed/Action Taken: No DESTINY-7 AMB Questionnaire DESTINY-7 Date DESTINY - 7 assessed: 08/08/24 Feeling nervous, anxious, or on edge: 2 = More than half the days Not being able to stop or control worryin = Not at all Worrying too much about different things: 0 = Not at all Trouble relaxin = Several days Being so restless that it is hard to sit still: 0 = Not at all Becoming easily annoyed or irritable: 0 = Not at all Feeling afraid as if something awful might happen: 0 = Not at all Total DESTINY-7 score (0-4 normal; 5-9 mild; 10-14 moderate; 15-21 severe): 3 Source: Developed by Drs. Nick Wen, Lauren Miller, Milton Palomino and colleagues, with an educational brady from [employer]. DESTINY-7 Assessment Billing DESTINY-7 Assessment Tool: DESTINY-7 Assessment 33004 Review of Systems Const All systems reviewed & are unremarkable except as noted in HPI and below Card Denies chest pain at rest, Denies chest pain with activity, Denies edema, Denies irregular heart rhythm, Denies claudication, Denies dyspnea, Denies dyspnea on exertion, Denies orthopnea, Denies paroxysmal nocturnal dyspnea and Denies slow heart rate Resp Denies cough, Denies dyspnea and Denies dyspnea on exertion GI Denies abdominal pain, Denies change in bowel habits, Denies excessive flatus, Denies nausea and Denies vomiting Denies urinary incontinence, Denies urinary hesitancy and Denies urinary urgency Musc Denies abnormal gait, Denies atrophy, Denies deformity and Denies limited range of motion Skin/Breast Denies bleeding lesions, Denies changing lesions and Denies rash Neuro Denies abnormal gait and Denies lack of coordination Physical exam (Primary Care) Vital Signs: Last Vital Signs Pulse 67 04/09/25 14:33 BP 104/60 04/09/25 14:33 Pulse Ox 94 04/09/25 14:33 Oxygen Delivery Method Room Air 04/09/25 14:33 BMI result Body Mass Index 23.6 Tobacco/Smoking Status: Tobacco use Status Tobacco use date assessed 04/09/25 04/09/25 14:36 Patient Tobacco Use Status Former Tobacco user 04/09/25 14:36 Tobacco use type Cigarette 04/09/25 14:36 e-Cigarette/Vaping Use Never Used 04/09/25 14:36 PHQ-9: PHQ-9 Score PHQ-9: Total score 0 04/09/25 15:09 Depression Screening Interpretation: Negative Thrive Assessment: Date of Thrive Assessment Date Thrive assessed 04/02/25 04/09/25 14:36 Currently or been in a relationship where the following occur: No concerns reported HENVT Head: Yes normal to inspection, Yes normocephalic and Yes atraumatic Ears: external ears normal Eyes General: appearance normal, both eyes and all related structures Eyelids: Yes eyelids normal Conjunctivae: conjunctivae normal Neck Neck: Yes normal visual inspection and Yes supple Resp Effort & Inspection: normal respiratory effort Auscultation: clear to auscultation bilaterally Cardio Jugular venous distension: no JVD Rate: regular rate Rhythm: regular rhythm Heart sounds: S1 normal heart sound present and S2 normal heart sound present GI Inspection: Yes normal to inspection Palpation (GI): Soft to palpation and nontender Auscultation: normal bowel sounds Skin General skin exam: no rashes or lesions noted Neuro General: no focal motor deficits Extrem General: Yes full ROM Psych Appearance: grossly normal Immunizations Boostrix Tdap 2.5 Lf unit-8 mcg-5 Lf/0.5 mL intramuscular syringe Performing Provider: Katie Shay MD [facility] Administered by: Nahed Kilgore LPN on 04/09/25 15:08 Dose Route Admin Location Dispensed Lot Number Expiration Date [facility] Library Serials Assistant 0.5 mL IM Left Deltoid 0.5 mL [id number] 06/11/27 72904-472-71 Xhale Total Dispensed Waste 0.5 mL 0 % VIS Given Date VIS Provided VIS Publication Date 04/09/25 Single Vaccine 21 Eligibility Eligibility Date Funding Source Not [facility] Eligible 04/09/25 Private Coding Level of Care Code Est Pt Prev Care 40-64y(18066) Diagnoses Physical exam Z00.00 Seizures R56.9 Additional Codes DESTINY-7 Assessment Billing - DESTINY-7 Assessment Tool: DESTINY-7 Assessment 74157 ([id number]) PHQ-9 - 01231 - PHQ-9 Billing: Yes ([id number]) Time Spent (min) 30 Assessment & Plan Assessment & Plan (1) Physical exam: Code(s): Z00.00 - Encounter for general adult medical examination without abnormal findings Category: Medical (2) Seizures: Code(s): R56.9 - Unspecified convulsions Category: Medical Plan Plan Patient was informed and verbally consented to the use of an ambient scribe for clinic note documentation during this visit. 1. Encounter for general adult medical examination without abnormal findings Z00.00 The patient underwent a colonoscopy in 2022, which revealed a sessile serrated adenoma without dysplasia. The next colonoscopy is scheduled for 2025. Tdap vaccine done today. 2. Epilepsy, unspecified, not intractable, without status epilepticus G40.909 HCC 79 The patient's seizure disorder is well controlled with medication following the surgical removal of a benign tumor. Orders: Orders Lipid Panel Today E78.5 - Hyperlipidemia, unspecified Comprehensive [place]. Panel Fast Today E78.5 - Hyperlipidemia, unspecified TDaP Immunization Today Z23 - Encounter for immunization
[2025-04-09 14:33] VITALS: BP 104/60; PULSE 67; O2SAT 94; BMI 23.6
--- OUTSIDE RECORDS SUMMARY | 2025-04-09 16:46 | XMS_ITS | Clinical Summary ---
Author Organization [facility] Address [facility] [employer] [address] [address] Phone Care Team Providers Care Rn Oncology Research Name Role Phone Katie Mata MD Primary Care Provid er Allergies No known active allergies Medications lamoTRIgine (LAMICTAL) 200 MG tablet TAKE 1 TABLET TWICE A DAY 180 tablet 3 02/12/2016 Active clonazePAM (KLONOPIN) 0.5 MG tablet Take 1 tablet by mouth as directed. 04/12/2013 Active ferrous sulfate 325 mg (65 mg la posta iron) tablet Take 325 mg by mouth daily with breakfast. Active naproxen (NAPROSYN) 250 MG tablet Take 2 tablets (500 mg total) by mouth 2 (two) times a day as needed. 20 tablet 05/11/2020 Active Social History Tobacco Use Types Packs/Day Years Used Date Smoking Tobacco: Former Alcohol Use Standard Drinks/Week Comments Not Currently 0 (1 standard drink = 0.6 oz pur e alcohol) Education Answer Date Recorded Are you interested in more education? Not on chantell e 12/01/2022 Are you concerned about learning? Not on file 12/01/2022 No 12/01/2022 No 12/01/2022 Digital Access Answer Date Recorded No 01/02/2023 No 01/02/2023 No 01/02/2023 Reliable internet access at home? Not on file 01/02/2023 Device with a working camera? Not on file Comments Unknown Sex and Gender Information Value Date Recorded Sex Assigned at Female 05/11/2020 8:08 PM EDT Legal Sex Female 7:39 PM EST Gender Identity Female 05/11/2020 8:08 PM EDT Sexual Orientation Not on file Last Filed Vital Signs Vital Sign Reading Time Taken Comments Blood Pressure 120/83 05/11/2020 9:45 PM EDT Pulse 86 05/11/2020 8:05 PM EDT Temperature 36.4 C (97.5 F) 05/11/2020 9:45 PM EDT Respiratory Rate 19 05/11/2020 8:05 PM EDT Oxygen Saturation 100% 05/11/2020 9:45 PM EDT Inhaled Oxygen Concentration - - Weight 65.8 kg (145 lb) 05/11/2020 8:05 PM EDT Height 157.5 cm (5' 2 ) 05/11/2020 8:05 PM EDT Body Mass Index 26.52 05/11/2020 8:05 PM EDT Plan of Treatment Health Maintenance Due Date Last Done Comments LIPID PANEL 1976 DEPRESSION SCREENING 1988 SMOKING Hx and SMOKELESS TOB ACCO SCREENING 1989 HEPATITIS C SCREENING 1994 HIV ONE-TIME SCREENING (18-6 5 YEARS) 1994 PAP SMEAR 1997 MAMMOGRAM 2016 COLOGUARD 2021 COLONOSCOPY 2021 COLORECTAL CANCER SCREENING 2021 FIT TEST 2021 FOBT 2021 SIGMOIDOSCOPY 2021 VIRTUAL COLONOSCOPY 2021 COVID-19 VACCINE ( - 2023-2 5 season) 2024 INFLUENZA VACCINE (#1) 2025 Adult Td,Tdap Booster 07/20/2025 07/20/2015 HEPATITIS A VACCINES Aged Out No long er eligible based on patient's age to complete this topic HIB VACCINES Aged Out No longer eligi ble based on patient's age to complete this topic MENINGOCOCCAL VACCINES (ACWY) Aged Out No longer eligible based on patient's age to complete this topic MENINGOCOCCAL VACCINES (B) Aged Out N o longer eligible based on patient's age to complete this topic PNEUMOCOCCAL VACCINES (0-49 years) Aged Out No longer eligible based on patient's age to complete this topic Medical Devices Not on file Insurance MEDICARE PART A & B [facility] PARTIAL MEDICARE PART A & B [facility] NET PARTIAL Member Subscriber Plan / Payer (Ef fective 2020-Present) Name:Delmy Escalera Relation to Subscriber:Self Name:Delmy Escalera Payer ID:Not on file Group ID:Not on file Type:Medicaid Address: [address] MEDICARE PART A & B [employer] NET PARTIAL Member Subscriber Plan / Payer (Ef fective 2020-Present) Name:Deepali Escaleratoro Victor Relation to Subscriber:Self Name:Delmy Escalera Payer ID:Not on file Group ID:Not on file Type:Medicaid Address[address] MEDICARE PART A & B HEALTH SAFETY NET PARTIAL PPO EPO MEDICARE PART A & B [facility] PARTIAL PPO EPO MEDICARE PART A & B [facility] PARTIAL Member Subscriber Plan / Payer (Ef fective 2020-Present) Name:Delmy Escalera Relation to Subscriber:Self Name:Delmy Escalera Payer ID:Not on file Group ID:Not on file Type:Medicaid Address: [address] EPO MEDICARE PART A & B [facility] PARTIAL MEDICARE PART A & B [facility] NET PARTIAL Member Subscriber Plan / Payer (Ef fective 2020-Present) Name:Delmy Escalera Relation to Subscriber:Self Name:Delmy Escalera Payer ID:Not on file Group ID:Not on file Type:Medicaid Address: [address] MEDICARE PART A & B [employer]ALTH [employer]AF[employer] NET PARTIAL PPO EPO Advance Directives For more information, please contact: [phone] (9AM - 5PM [facility], Monday-Monday) Documents on File Type Date Recorded Patient Trouble Shooter Expl anation Advance Directive - Non Epic LMR 04/09/2008 12:00 AM Care Teams Rn Oncology Research Relationship Specialty Start Date End Date Katie Mata MD [address] [place] [address] PCP - General Internal Medicine 05/11/20 Additional Source Comments The information contained in this document represents components of the legal health record. It is not the complete legal health record.[facility]
--- OUTSIDE RECORDS SUMMARY | 2025-04-09 16:46 | XMS_ITS | Encounter Summary ---
Author Organization [facility] Address [address] [place] [id number] Phone Care Team Providers Care Fur Designer Name Role Phone Katie Mata MD Primary Care Provid er Encounter Details Date Type Department Care Team (Late st Contact Info) Description 05/11/2020 Procedure Pass [facility], Ct Scan - [address] [address] Social History Tobacco Use Types Packs/Day Years Used Date Smoking Tobacco: Former Alcohol Use Standard Drinks/Week Comments Not Currently 0 (1 standard drink = 0.6 oz pur e alcohol) Comments Unknown Sex and Gender Information Value Date Recorded Sex Assigned at Female 05/11/2020 8:08 PM EDT Legal Sex Female 7:39 PM EST Gender Identity Female 05/11/2020 8:08 PM EDT Sexual Orientation Not on file documented as of this encounter Plan of Treatment Not on file documented as of this encounter Visit Diagnoses Not on filedocumented in this encounter Care Teams Fur Designer Relationship Specialty Start Date End Date Katie Mata MD [address] [place] [address] PCP - General Internal Medicine 05/11/20 documented as of this encounter Additional Source Comments The information contained in this document represents components of the legal health record. It is not the complete legal health record.[facility]
== END 2025-04-09 15:10 | disposition home or self-care (01) ==
PROVIDERS: PCP Internal Medicine; Visit Provider Internal Medicine
DX: Z00.00 Encounter for general adult medical examination without abnormal findings (principal); R56.9 Unspecified convulsions; Z23 Encounter for immunization

== ENCOUNTER → 2025-04-09 14:27 | Outpatient (BNVA) | payer BC, MEDICARE, SELFPAY | PROVIDERS: PCP Internal Medicine; Visit Provider Internal Medicine | DX: Z00.00 Encounter for general adult medical examination without abnormal findings (principal); E78.5 Hyperlipidemia, unspecified; G40.909 Epilepsy, unspecified, not intractable, without status epilepticus; Z23 Encounter for immunization | CPT/HCPCS: 90471; 90715; 96127 ==

== ENCOUNTER 2025-04-19 07:42 | Outpatient (REF) | payer BC, MEDICARE, SELFPAY ==
--- OUTSIDE RECORDS SUMMARY | 2025-04-19 07:46 | XMS_ITS | Encounter Summary ---
Author Organization [facility] Address [address] [place] [address] Phone Care Team Providers Care Relief Manager Name Role Phone Katie Mata MD Primary Care Provid er Encounter Details Date Type Department Care Team (Late st Contact Info) Description 05/11/2020 Procedure Pass [facility], Ct Scan - [address] [address] Social History Tobacco Use Types Packs/Day Years [...] on filedocumented in this encounter Care Teams Relief Manager Relationship Specialty Start Date End Date Katie Mata MD [address] [place] [address] PCP - General Internal Medicine 05/11/20 documented as of this encounter Additional Source Comments The information contained in this document represents components of the legal health record. It is not the complete legal health record.[facility]
--- OUTSIDE RECORDS SUMMARY | 2025-04-19 07:46 | XMS_ITS | Clinical Summary ---
Author Organization [facility] Address [facility] [employer] [address] [address] Phone Care Team Providers Care Finish Production Manager Name Role Phone Katie Mata MD Primary Care Provid er Allergies No known active allergies Medications lamoTRIgine (LAMICTAL) 200 MG tablet TAKE 1 TABLET TWICE A DAY 180 tablet 3 02/12/2016 Active clonazePAM (KLONOPIN) 0.5 MG tablet Take 1 tablet by mouth as directed. 04/12/2013 Active ferrous sulfate 325 mg (65 mg red [place] iron) tablet Take 325 mg by mouth [...] file Insurance MEDICARE PART A & B [facility] PARTIAL MEDICARE PART A & B [facility] NET PARTIAL Member Subscriber Plan / Payer (Ef fective 2020-Present) Name:Delmy Escalera Relation to Subscriber:Self Name:Delmy Escalera Payer ID:Not on file Group ID:Not on file Type:Medicaid Address: [address] MEDICARE PART A & B [employer]ALTH [employer]AF[employer] NET PARTIAL Member Subscriber Plan / Payer (Ef fective 2020-Present) Name:Deepali Escaleratoro Victor Relation to Subscriber:Self Name:Delmy Escalera Payer ID:Not on file Group ID:Not on file Type:Medicaid Address: [address] MEDICARE PART A & B HEALTH SAFET[employer] NET PARTIAL PPO EPO MEDICARE PART A & B [facility] PARTIAL PPO EPO MEDICARE PART A & B [facility] PARTIAL Member Subscriber Plan / Payer (Ef fective 2020-Present) Name:Delmy Escalera Relation to Subscriber:Self Name:Delmy Escalera Payer ID:Not on file Group ID:Not on file Type:Medicaid Address: [address] EPO MEDICARE PART A & B [facility] PARTIAL MEDICARE PART A & B [facility] NET PARTIAL Member Subscriber Plan / Payer (Ef fective 2020-Present) Name:Delmy Escalera Relation to Subscriber:Self Name:Delmy Escalera Payer ID:Not on file Group ID:Not on file Type:Medicaid Address: [address] MEDICARE PART A & B [employer] NET PARTIAL PPO EPO Advance Directives For more information, please contact: [phone] (9AM - 5PM [facility], Monday-Monday) Documents on File Type Date Recorded Patient Cattle Rancher Expl anation Advance Directive - Non Epic LMR 04/09/2008 12:00 AM Care Teams Finish Production Manager Relationship Specialty Start Date End Date Katie Mata MD [address] [place] [address] PCP - General Internal Medicine 05/11/20 Additional Source Comments The information contained in this document represents components of the legal health record. It is not the complete legal health record.[facility]
[2025-04-19 08:36] LABS: Alanine Aminotransferase 21 U/L (0-31); Albumin Level 4.7 g/dL (3.5-5.0); Alkaline Phosphatase 41 U/L (39-117); Anion Gap 12 (12-20); Aspartate Amino Transferase 24 U/L (5-31); Blood Urea Nitrogen 13 mg/dL (9-16); Calcium 9.4 mg/dL (8.4-10.2); Carbon Dioxide 27 mmol/L (22-29); Chloride 108 mmol/L (96-108); Cholesterol 270 mg/dL (<200); Estimated Glomerular Filt Rate > 60; HDL Cholesterol 56 mg/dL (>40); Potassium 4.2 mmol/L (3.3-5.1); Sodium 143 mmol/L (135-145); Total Protein 7.4 g/dL (6.5-8.0); Triglycerides 60 mg/dL (<150)
== END 2025-04-19 07:43 | disposition home or self-care (01) ==
LOC: HO.LAB 07:42
PROVIDERS: PCP Internal Medicine; Visit Provider Internal Medicine
DX: E78.5 Hyperlipidemia, unspecified (principal)
CPT/HCPCS: 36415; 80053; 80061